=== PATIENT | male | born 1975 | race Caucasian/White ===

== ENCOUNTER 2016-12-23 01:35 | Inpatient (IN) | payer MEDICARE, MEDICAID ==
--- NOTE | 2016-12-23 01:40 | ED Physician Chart ---
Chief Complaint/HPI - Patient Information Date Seen:: 12/23/16 Time Seen:: 01:38 Chief Complaint:: vomiting History of Present Illness:: 41-year-old male, twitching disabled, noncommunicative, from long-term facility, brought in by EMS with acute, severe, vomiting since this morning. Also has associated dry heaving. There are apparently no alleviating or exacerbating factors. History limited as patient has underlying intellectual disability and cannot communicate History provided by EMS and EMS run sheet Allergies:: Allergies Allergy/AdvReac Type Severity Reaction Status Date / Time No Known Allergies Allergy Verified 06/21/16 22:17 Historian:: EMS Review:: Nurse's Note Reviewed, EMS run form Reviewed, Transfer documents Reviewed Review of Systems - Review of Systems Other: Complete system review otherwise unremarkable except as noted in history of present illness. Past Medical History - Past Medical History Past Medical History: Other (severe intellectual disability, Down syndrome) Family History: None Social History: Non Smoker, No Alcohol, No Drug Use, Care Facility Surgical History: None Psychiatricy History: None Medication: Reviewed Family Medical History - Family Member Mother History Unknown: Yes Physical Exam - Physical Examination Other:: INITIAL VITAL SIGNS: Reviewed by me GENERAL: Alert but severely intellectually handicapped and uncooperative. No acute distress HEAD: Head is normocephalic and atraumatic EYES: EOMI. PERRL. No scleral icterus. No conjunctival injection ENT: Moist mucous membranes. NECK: Supple. No masses. Full range of motion RESPIRATORY: No tachypnea. Clear breath sounds bilaterally. No wheezing, rales, or rhonchi CV: Regular rate and rhythm. No murmurs, rubs, or gallops ABDOMEN: Soft, non-distended, tender and guarding on deep palpation. No rebound. No masses. EXTREMITIES: No deformity. No cyanosis. No edema. SKIN: Warm and dry. No obvious rashes. NEUROLOGIC: Alert and oriented. Face is symmetric. Speech is normal. Moves all extremities equally. Motor and sensory distally intact. Labs/Radiology/EKG Results - Lab Results Results: Lab Results 12/23/16 12/23/16 12/23/16 Range/Units 01:49 01:49 01:49 WBC 10.8 D (4.8-10.8) Th/cmm RBC 4.58 (4.30-5.70) Mil/cmm Hgb 14.4 D (13.2-17.3) gm/dL Hct 42.7 D (39.0-49.0) % MCV 93.1 (80-99) fl MCH 31.3 H (26.0-30.0) pg MCHC Differential 33.7 (28.0-36.0) pg RDW 13.5 (11.5-20.0) % Plt Count 297 D (150-400) Th/cmm MPV 7.4 fl Band Neutrophils % 1 (0-10) % Neutrophils (Manual) 91 H (40-80) % Lymphocytes 8 L (20-50) % Platelet Estimate ADEQUATE (NORMAL) PT 10.5 (9.5-11.5) SECONDS INR 1.01 (0.5-1.4) PTT (Actin FS) 23.4 L (26.0-38.0) SECONDS Sodium 137 (136-145) mEq/L Potassium 3.4 L (3.5-5.1) mEq/L Chloride 100 (98-107) mEq/L Carbon Dioxide 29.1 (21.0-31.0) mEq/L Anion Gap 11.3 (7.0-16.0) BUN 13 (7-25) mg/dL Creatinine 0.6 L (0.7-1.3) mg/dL Est GFR ( Amer) > 60.0 (>90) ml/min Est GFR (Non-Af Amer) > 60.0 ml/min BUN/Creatinine Ratio 21.7 Glucose 159 H (70-105) mg/dL Whole Bld Lactic Acid (0.60-1.99) mmol/L Calcium 9.6 (8.6-10.3) mg/dL Total Bilirubin 0.3 (0.3-1.0) mg/dL AST 18 (13-39) U/L ALT 14 (7-52) U/L Alkaline Phosphatase 87 (34-104) U/L Total Protein 7.6 (6.0-8.3) gm/dL Albumin 3.8 L (4.2-5.5) gm/dL Globulin 3.8 gm/dL Albumin/Globulin Ratio 1.0 (1.0-1.8) Lipase (11-82) U/L 12/23/16 12/23/16 Range/Units 01:49 01:49 WBC (4.8-10.8) Th/cmm RBC (4.30-5.70) Mil/cmm Hgb (13.2-17.3) gm/dL Hct (39.0-49.0) % MCV (80-99) fl MCH (26.0-30.0) pg MCHC Differential (28.0-36.0) pg RDW (11.5-20.0) % Plt Count (150-400) Th/cmm MPV fl Band Neutrophils % (0-10) % Neutrophils (Manual) (40-80) % Lymphocytes (20-50) % Platelet Estimate (NORMAL) PT (9.5-11.5) SECONDS INR (0.5-1.4) PTT (Actin FS) (26.0-38.0) SECONDS Sodium (136-145) mEq/L Potassium (3.5-5.1) mEq/L Chloride (98-107) mEq/L Carbon Dioxide (21.0-31.0) mEq/L Anion Gap (7.0-16.0) BUN (7-25) mg/dL Creatinine (0.7-1.3) mg/dL Est GFR ( Amer) (>90) ml/min Est GFR (Non-Af Amer) ml/min BUN/Creatinine Ratio Glucose (70-105) mg/dL Whole Bld Lactic Acid 1.45 (0.60-1.99) mmol/L Calcium (8.6-10.3) mg/dL Total Bilirubin (0.3-1.0) mg/dL AST (13-39) U/L ALT (7-52) U/L Alkaline Phosphatase (34-104) U/L Total Protein (6.0-8.3) gm/dL Albumin (4.2-5.5) gm/dL Globulin gm/dL Albumin/Globulin Ratio (1.0-1.8) Lipase 10 L (11-82) U/L - Radiology Results Results: Single AP VIEW Portable Chest X-ray was interpreted independently and contemporaneously by Arsenio Macedo MD: No cardiomegaly Normal mediastinum No lung infiltrates No pneumothorax No soft tissue or bony abnormalities CT abdomen and pelvis without contrast preliminary report per radiology Consistent with early or partial small bowel obstruction - EKG Interpretations Comments:: 12-lead EKG Interpretation by Arsenio Macedo MD: Normal Sinus Rhythm with ventricular rate of [] beats per minute Normal axis Normal intervals No acute ST or T wave changes. No obvious STEMI ED Septic Shock - . Is Septic Shock (SBP<90, OR Lactate>4 mmol\L) present?: No Reassessment (Disposition) - Reassessment Reassessment:: Is a 41-year-old male with severe intellectual disability Down syndrome. He is brought in with intractable nausea and vomiting. Labs are not remarkable for anything to specific. Unable to provide any history at all he does not communicate at all. Very difficult to get a clear clinical picture of this patient. Given his severe intellectual disability he will need further workup and treatment. Discussed case with admitting physician. Patient admitted for further workup and treatment. Reassessment Condition:: Improved - Diagnosis Diagnosis:: Intractable nausea and vomiting due to early small bowel obstruction - Patient Disposition Discharge/Transfer:: Acute Care w/in this hosp Admitted to:: Med/Surg Admitting Medical Physician:: Sherine Bhatt Time:: 03:27 Condition at Disposition:: Stable
[2016-12-23] MEDS ORDERED: Sodium Chloride 0.9% 1,000 ML IV ONE (01:44)
[2016-12-23] MEDS ORDERED: Dexamethasone Sodium Phos 4 mg/mL Vial IVP STA (01:44)
[2016-12-23] MEDS ORDERED: Prochlorperazine 5 mg/mL 2mL Vial IVP STA (01:44)
[2016-12-23 02:07] LABS: MEAN CELL VOLUME 93.1 fl (80-99); MEAN CORPUSCULAR HEMOGLOBIN 31.3 pg (26.0-30.0); MEAN CORPUSCULAR HGB CONC 33.7 pg (28.0-36.0); MEAN PLATELET VOLUME 7.4 fl; RED BLOOD COUNT 4.58 Mil/cmm (4.30-5.70); RED CELL DISTRIBUTION WIDTH 13.5 % (11.5-20.0)
[2016-12-23 02:08] LABS: HEMATOCRIT 42.7 % (39.0-49.0); HEMOGLOBIN 14.4 gm/dL (13.2-17.3); PLATELET COUNT 297 Th/cmm (150-400); WHITE BLOOD COUNT 10.8 Th/cmm (4.8-10.8)
[2016-12-23 02:16] LABS: INR 1.01 (0.5-1.4); PROTHROMBIN TIME (TEST) 10.5 SECONDS (9.5-11.5)
[2016-12-23] MEDS ORDERED: Dexamethasone Sodium Phos 10 mg/mL PF Vial ONE (02:16)
[2016-12-23 02:18] LABS: ALKALINE PHOSPHATASE 87 U/L (34-104); ANION GAP 11.3 (7.0-16.0); BILIRUBIN,TOTAL 0.3 mg/dL (0.3-1.0); BUN - UREA NITROGEN 13 mg/dL (7-25); BUN/CREATININE RATIO 21.7; CALCIUM SERUM 9.6 mg/dL (8.6-10.3); CARBON DIOXIDE 29.1 mEq/L (21.0-31.0); CHLORIDE 100 mEq/L (98-107); CREATININE - SERUM 0.6 mg/dL (0.7-1.3); GLUCOSE 159 mg/dL (70-105); POTASSIUM SERUM 3.4 mEq/L (3.5-5.1); SGOT 18 U/L (13-39); SGPT/ALT 14 U/L (7-52); SODIUM SERUM 137 mEq/L (136-145)
[2016-12-23 02:32] LABS: BAND NEUTROPHILE 1 % (0-10); NEUTROPHILS 91 % (40-80); PLATELET ESTIMATE ADEQUATE (NORMAL); TOTAL CELLS COUNTED 100
[2016-12-23] MEDS ORDERED: Fleet Enema 135 mL RC PRN (08:44)
--- NOTE | 2016-12-23 09:07 | Diagnostic Imaging Report ---
INDICATION: Pain Technique: Serial axial images were performed through the abdomen and pelvis and then reformatted in the coronal plane. CTDI is 7.9mGy. [id number] FINDINGS: The study is marred by motion artifact. Question of some patchy infiltrate in the left lower lung zone. There is some right pleural effusion present. Liver and spleen are normal in size without focal mass. No renal masses stones or hydronephrosis. No masses or enlargement of the adrenal glands or pancreas. No biliary dilatation. Gallbladder without stones. Mild distention of small bowel loops. The appendix is not well seen. Within the pelvis bladder is smooth walled without stones. There is thickening of the hernández of the rectum. There is some distention of the rectal vault right fecal material Bone windows show no lytic or blastic lesions of bone. Dysplastic changes right hip joint. IMPRESSION: Question mild infiltrate left lung base. Rectal wall is thickened and contains fecal material. Question of proctitis. Slight distention of proximal small bowel loops raising question of partial or early small bowel obstruction.
--- NOTE | 2016-12-23 09:07 | Diagnostic Imaging Report ---
CLINICAL INDICATION: Shortness of breath FINDINGS: Heart size is normal. No infiltrates or effusions. No bony thoracic abnormalities. IMPRESSION: Normal chest x-ray.
--- NOTE | 2016-12-23 09:14 | General Progress Note ---
Subjective - Review of Systems Service Date: 12/23/16 Events since last encounter: ER note read CT scan - possible SBO PE: MR, can not give info, abdomen is flat and soft Plan: SBO series Objective - Results Result Diagrams: 12/23/16 01:49 12/23/16 01:49 Recent Labs: Laboratory Last Values WBC 10.8 Th/cmm (4.8-10.8) D 12/23/16 01:49 RBC 4.58 Mil/cmm (4.30-5.70) 12/23/16 01:49 Hgb 14.4 gm/dL (13.2-17.3) D 12/23/16 01:49 Hct 42.7 % (39.0-49.0) D 12/23/16 01:49 MCV 93.1 fl (80-99) 12/23/16 01:49 MCH 31.3 pg (26.0-30.0) H 12/23/16 01:49 MCHC Differential 33.7 pg (28.0-36.0) 12/23/16 01:49 RDW 13.5 % (11.5-20.0) 12/23/16 01:49 Plt Count 297 Th/cmm (150-400) D 12/23/16 01:49 MPV 7.4 fl 12/23/16 01:49 Band Neutrophils % 1 % (0-10) 12/23/16 01:49 Neutrophils (Manual) 91 % (40-80) H 12/23/16 01:49 Lymphocytes 8 % (20-50) L 12/23/16 01:49 Platelet Estimate ADEQUATE (NORMAL) 12/23/16 01:49 PT 10.5 SECONDS (9.5-11.5) 12/23/16 01:49 INR 1.01 (0.5-1.4) 12/23/16 01:49 PTT (Actin FS) 23.4 SECONDS (26.0-38.0) L 12/23/16 01:49 Sodium 137 mEq/L (136-145) 12/23/16 01:49 Potassium 3.4 mEq/L (3.5-5.1) L 12/23/16 01:49 Chloride 100 mEq/L (98-107) 12/23/16 01:49 Carbon Dioxide 29.1 mEq/L (21.0-31.0) 12/23/16 01:49 Anion Gap 11.3 (7.0-16.0) 12/23/16 01:49 BUN 13 mg/dL (7-25) 12/23/16 01:49 Creatinine 0.6 mg/dL (0.7-1.3) L 12/23/16 01:49 Est GFR ( Amer) > 60.0 ml/min (>90) 12/23/16 01:49 Est GFR (Non-Af Amer) > 60.0 ml/min 12/23/16 01:49 BUN/Creatinine Ratio 21.7 12/23/16 01:49 Glucose 159 mg/dL (70-105) H 12/23/16 01:49 Whole Bld Lactic Acid 1.45 mmol/L (0.60-1.99) 12/23/16 01:49 Calcium 9.6 mg/dL (8.6-10.3) 12/23/16 01:49 Total Bilirubin 0.3 mg/dL (0.3-1.0) 12/23/16 01:49 AST 18 U/L (13-39) 12/23/16 01:49 ALT 14 U/L (7-52) 12/23/16 01:49 Alkaline Phosphatase 87 U/L (34-104) 12/23/16 01:49 Total Protein 7.6 gm/dL (6.0-8.3) 12/23/16 01:49 Albumin 3.8 gm/dL (4.2-5.5) L 12/23/16 01:49 Globulin 3.8 gm/dL 12/23/16 01:49 Albumin/Globulin Ratio 1.0 (1.0-1.8) 12/23/16 01:49 Lipase 10 U/L (11-82) L 12/23/16 01:49 - Physical Exam Vitals and I&O: Vital Signs Temp 97.8 F 12/23/16 06:50 Pulse 70 12/23/16 08:24 Resp 18 12/23/16 08:24 BP 104/50 12/23/16 08:24 Pulse Ox 96 12/23/16 08:24 Active Medications: Current Medications Bisacodyl (Dulcolax 10 Mg Supp) 10 mg RC DAILY PRN PRN Reason: Constipation Stop: 02/21/17 08:45 Dextrose/Sodium Chloride (D5-0.45ns) 1,000 mls @ 75 mls/hr IV .[id number] DANIA Stop: 02/21/17 08:59 Potassium Chloride 40 meq/Lidocaine HCl 25 mg/ Sodium Chloride 272.5 mls @ 68 mls/hr IV X1 ONE Stop: 12/23/16 14:00 Sodium Phosphate (Fleet Enema) 135 ml RC DAILY PRN PRN Reason: Constipation Stop: 02/21/17 08:43
[2016-12-23] MEDS: D5-0.45NS 1,000 ML IV SCH ×2 (09:28→23:24)
[2016-12-23] MEDS ORDERED: Potassium Chloride 40 MEQ, Lidocaine 1% 20mL Vial 25 MG in Sodium Chloride 0.9% 250 ML IV ONE (10:00)
[2016-12-23] MEDS ORDERED: Diatrizoate Meglumine/Diatri 30 mL Sol ONE (10:15)
--- NOTE | 2016-12-23 11:03 | Diagnostic Imaging Report ---
INDICATION: Abdominal pain FINDINGS: The bowel gas pattern is unremarkable. No abnormal masses or calcifications. Dysplastic changes in the right hip joint. IMPRESSION: No acute disease.
--- NOTE | 2016-12-23 19:13 | History & Physical ---
ADMIT DATE: 12/23/2016 CHIEF COMPLAINT: The patient came in because of nausea and vomiting. HISTORY OF PRESENT ILLNESS: This is a 41-year-old male with past medical history of intellectual disability who came in because of persistent nausea and vomiting. A few hours prior to admission, the patient developed persistent nausea and vomiting. This was not associated with meals. Since his condition did not improve, he was brought to the Emergency Room. His white count was 10.8 with the temperature 98.4 degrees. Lipase was 10. CT scan of the abdomen/pelvis revealed thickened rectal wall containing fecal material, slight distention of proximal small bowel loops suggestive of early or partial small-bowel obstruction. This was followed by K[facility] which revealed no acute disease. The patient was seen by a surgeon. A small bowel series was done and this was negative for small-bowel obstruction. PAST MEDICAL HISTORY: 1. Intellectual disability. 2. Down syndrome. 3. Hearing loss. CURRENT MEDICATIONS: Currently on bisacodyl, Fleet enema. ALLERGIES: No known drug allergies. SOCIAL AND FAMILY HISTORY: I was unable to obtain directly from the patient because he remains nonverbal. REVIEW OF SYSTEMS: Again, I was not able to decipher from the patient. Based on transfer notes, the patient's appetite had deteriorated due to his persistent nausea and vomiting. He had no fever. HEENT: No mention of headaches or dizziness. CARDIORESPIRATORY: No chest pain, palpitations, diaphoresis, cough, no shortness of breath. GASTROINTESTINAL: He had persistent nausea and vomiting, but no abdominal pain. No melena, hematochezia, diarrhea. Workup revealed constipation. HEMATOLOGIC: No history of anemia. MUSCULOSKELETAL: Multiple joint arthralgias. GENITOURINARY: No history of kidney failure, no dysuria, no hematuria. NEUROPSYCHIATRIC: No syncopal episode nor seizure activity, no neuropathy. He has intellectual disability and Down syndrome. PHYSICAL EXAMINATION: GENERAL: The patient is awake, remains nonverbal, not in any distress. VITAL SIGNS: His blood pressure 105/72, pulse 75, temperature 97.9 degrees. SKIN: Good turgor, warm, no rash, no jaundice appreciated. HEENT: Head normocephalic, atraumatic. EYES: Extraocular muscles intact. Pupils equal, round, reactive to light and accommodation. Anicteric sclerae. ____ pink conjunctivae. Nose, midline nasal septum. Mouth, moist mucosa with adequate dentition. NECK: Supple, no adenopathy, no thyromegaly, no bruits, no JVD. CHEST AND CVS: S1, S2. No rub, murmur nor gallop appreciated. Point of maximal impulse fifth intercostal space, left midclavicular line. No abdominal or femoral bruits appreciated. LUNGS: Equal expansion. No use of accessory muscles. No supraclavicular retractions. Decreased breath sounds but clear to auscultation without any wheeze. ABDOMEN: Flat, soft. Positive for bowel sounds. No bruits, no tenderness on palpation. No guarding, no rebound. RECTAL: Lax sphincter tone. GENITOURINARY: Normal appearing male genitalia. MUSCULOSKELETAL: No effusions present in his joints, but unable to assess his range of motion. EXTREMITIES: No evidence of edema, cyanosis nor clubbing. He has adequate femoral, but unable to fully appreciate popliteal and dorsalis pedis pulses because bilateral lower extremities are contracted. NEUROLOGIC: The patient is awake. He has voluntary movements of his extremities. LABORATORY DATA: White count 10.8, hemoglobin 14.4, hematocrit 42.7, platelets 297, and polys 91%. Sodium 137, potassium 3.4, chloride 100, bicarbonate 29, BUN 13, creatinine 0.6, glucose 156, albumin 3.8, lipase 10, AST 18 and ALT 14. IMPRESSION: 1. Persistent nausea and vomiting, likely due to ongoing ileus with constipation. I doubt patient has any partial small-bowel obstruction. 2. Hypokalemia secondary to nausea and vomiting. 3. Intellectual disability. 4. Down syndrome. 5. Hearing loss. PLAN: 1. Keep the patient n.p.o. for now except for meds until cleared by Surgery. 2. Continue on with IV fluids. 3. Continue with enema as well as laxatives. [facility]# [id number]
[2016-12-24 06:21] LABS: ANION GAP 4.2 (7.0-16.0); BUN - UREA NITROGEN 10 mg/dL (7-25); BUN/CREATININE RATIO 16.7; CALCIUM SERUM 8.6 mg/dL (8.6-10.3); CARBON DIOXIDE 27.5 mEq/L (21.0-31.0); CHLORIDE 109 mEq/L (98-107); CREATININE - SERUM 0.6 mg/dL (0.7-1.3); GLUCOSE 121 mg/dL (70-105); POTASSIUM SERUM 3.7 mEq/L (3.5-5.1); SODIUM SERUM 137 mEq/L (136-145)
[2016-12-24 06:56] LABS: URINE BILIRUBIN NEGATIVE (NEGATIVE); URINE COLOR YELLOW; URINE GLUCOSE (UA) NEGATIVE (NEGATIVE); URINE KETONE 40 mg/dL (NEGATIVE)
[2016-12-24 06:57] LABS: URINE BLOOD MODERATE (NEGATIVE); URINE PH 8.5; URINE PROTEIN NEGATIVE (NEGATIVE)
[2016-12-24 07:01] LABS: URINE AMORPHOUS SEDIMENT MODERATE PHOSPHATES (NONE SEEN); URINE BACTERIA FEW /hpf (NONE SEEN); URINE EPITHELIAL CELLS RARE /lpf (FEW); URINE WBC 0-2 /hpf (0-5)
--- NOTE | 2016-12-24 08:04 | General Progress Note ---
Subjective - Review of Systems Service Date: 12/24/16 Events since last encounter: minimal NGT drainage - removed start clear liquids Objective - Results Result Diagrams: 12/23/16 01:49 12/24/16 05:35 Recent Labs: Laboratory Last Values WBC 10.8 Th/cmm (4.8-10.8) D 12/23/16 01:49 RBC 4.58 Mil/cmm (4.30-5.70) 12/23/16 01:49 Hgb 14.4 gm/dL (13.2-17.3) D 12/23/16 01:49 Hct 42.7 % (39.0-49.0) D 12/23/16 01:49 MCV 93.1 fl (80-99) 12/23/16 01:49 MCH 31.3 pg (26.0-30.0) H 12/23/16 01:49 MCHC Differential 33.7 pg (28.0-36.0) 12/23/16 01:49 RDW 13.5 % (11.5-20.0) 12/23/16 01:49 Plt Count 297 Th/cmm (150-400) D 12/23/16 01:49 MPV 7.4 fl 12/23/16 01:49 Band Neutrophils % 1 % (0-10) 12/23/16 01:49 Neutrophils (Manual) 91 % (40-80) H 12/23/16 01:49 Lymphocytes 8 % (20-50) L 12/23/16 01:49 Platelet Estimate ADEQUATE (NORMAL) 12/23/16 01:49 PT 10.5 SECONDS (9.5-11.5) 12/23/16 01:49 INR 1.01 (0.5-1.4) 12/23/16 01:49 PTT (Actin FS) 23.4 SECONDS (26.0-38.0) L 12/23/16 01:49 Sodium 137 mEq/L (136-145) 12/24/16 05:35 Potassium 3.7 mEq/L (3.5-5.1) 12/24/16 05:35 Chloride 109 mEq/L (98-107) H 12/24/16 05:35 Carbon Dioxide 27.5 mEq/L (21.0-31.0) 12/24/16 05:35 Anion Gap 4.2 (7.0-16.0) L 12/24/16 05:35 BUN 10 mg/dL (7-25) 12/24/16 05:35 Creatinine 0.6 mg/dL (0.7-1.3) L 12/24/16 05:35 Est GFR ( Amer) > 60.0 ml/min (>90) 12/24/16 05:35 Est GFR (Non-Af Amer) > 60.0 ml/min 12/24/16 05:35 BUN/Creatinine Ratio 16.7 12/24/16 05:35 Glucose 121 mg/dL (70-105) H 12/24/16 05:35 Whole Bld Lactic Acid 1.45 mmol/L (0.60-1.99) 12/23/16 01:49 Calcium 8.6 mg/dL (8.6-10.3) 12/24/16 05:35 Magnesium 2.0 mg/dL (1.9-2.7) 12/24/16 05:35 Total Bilirubin 0.3 mg/dL (0.3-1.0) 12/23/16 01:49 AST 18 U/L (13-39) 12/23/16 01:49 ALT 14 U/L (7-52) 12/23/16 01:49 Alkaline Phosphatase 87 U/L (34-104) 12/23/16 01:49 Total Protein 7.6 gm/dL (6.0-8.3) 12/23/16 01:49 Albumin 3.8 gm/dL (4.2-5.5) L 12/23/16 01:49 Globulin 3.8 gm/dL 12/23/16 01:49 Albumin/Globulin Ratio 1.0 (1.0-1.8) 12/23/16 01:49 Lipase 10 U/L (11-82) L 12/23/16 01:49 Urine Source CLEAN C 12/24/16 06:18 Urine Color YELLOW 12/24/16 06:18 Urine Clarity SLIGHT CLOUDY (CLEAR) 12/24/16 06:18 Urine pH 8.5 12/24/16 06:18 Ur Specific [place] 1.020 (1.005-1.030) 12/24/16 06:18 Urine Protein NEGATIVE mg/dL (NEGATIVE) 12/24/16 06:18 Urine Glucose (UA) NEGATIVE mg/dL (NEGATIVE) 12/24/16 06:18 Urine Ketones 40 mg/dL (NEGATIVE) H 12/24/16 06:18 Urine Blood MODERATE (NEGATIVE) H 12/24/16 06:18 Urine Nitrate NEGATIVE (NEGATIVE) 12/24/16 06:18 Urine Bilirubin NEGATIVE (NEGATIVE) 12/24/16 06:18 Urine Urobilinogen 1.0 E.U./dL (0.2 - 1.0) 12/24/16 06:18 Ur Leukocyte Esterase NEGATIVE (NEGATIVE) 12/24/16 06:18 Urine RBC 5-10 /hpf (0-5) H 12/24/16 06:18 Urine WBC 0-2 /hpf (0-5) 12/24/16 06:18 Ur Epithelial Cells RARE /lpf (FEW) 12/24/16 06:18 Amorphous Sediment MODERATE PHOSPHATES (NONE SEEN) 12/24/16 06:18 Urine Bacteria FEW /hpf (NONE SEEN) 12/24/16 06:18 - Physical Exam Vitals and I&O: Vital Signs Temp 98.8 F 12/24/16 04:00 Pulse 90 12/24/16 04:00 Resp 18 12/24/16 04:00 BP 137/60 12/24/16 04:00 Pulse Ox 94 12/24/16 04:00 Intake & Output 12/23/16 12/24/16 12/24/16 18:59 06:59 18:59 Intake Total 1000 Balance 1000 Intake: Intake, IV Amount 1000 D5-0.45NS 1,000 ml @ 75 1000 mls/hr IV .[id number] [facility], [facility]–1983 Rx #:[id number] Active Medications: Current Medications Bisacodyl (Dulcolax 10 Mg Supp) 10 mg RC DAILY PRN PRN Reason: Constipation Stop: 02/21/17 08:45 Dextrose/Sodium Chloride (D5-0.45ns) 1,000 mls @ 75 mls/hr IV .[id number] [facility] Stop: 02/21/17 08:59 Last Admin: 12/23/16 23:24 Dose: 75 mls/hr Sodium Phosphate (Fleet Enema) 135 ml RC DAILY PRN PRN Reason: Constipation Stop: 02/21/17 08:43
--- NOTE | 2016-12-24 09:24 | Diagnostic Imaging Report ---
Small bowel follow-through procedure History: Obstruction Comparison: KUB earlier the same day and CT abdomen and pelvis on 12/23/2016 Technique/procedure: Hospice Art Therapist view demonstrates generalized gas-filled loops of bowel. 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 Contrast was administered to patient's NG tube. Exam is limited based on the static images provided. There is opacification of the stomach. 1.5 hour films demonstrate opacification of multiple small bowel loops. Images were then obtained at 5 hours demonstrating contrast opacification of the large bowel. IMPRESSION: Limited examination based on the limited static images provided. When compared to previous examination, these findings favor an ileus. A partial distal small bowel obstructive process is considered less likely. Clinical correlation and follow-up is recommended. If needed repeat small bowel follow-through may be obtained for further assessment.
[2016-12-24] MEDS: D5-0.45NS 1,000 ML IV SCH (11:35)
--- NOTE | 2016-12-24 17:34 | General Progress Note ---
Subjective - Review of Systems Service Date: 12/24/16 Subjective: Non verbal Objective - Results Result Diagrams: 12/23/16 01:49 12/24/16 05:35 Recent Labs: Laboratory Last Values WBC 10.8 Th/cmm (4.8-10.8) D 12/23/16 01:49 RBC 4.58 Mil/cmm (4.30-5.70) 12/23/16 01:49 Hgb 14.4 gm/dL (13.2-17.3) D 12/23/16 01:49 Hct 42.7 % (39.0-49.0) D 12/23/16 01:49 MCV 93.1 fl (80-99) 12/23/16 01:49 MCH 31.3 pg (26.0-30.0) H 12/23/16 01:49 MCHC Differential 33.7 pg (28.0-36.0) 12/23/16 01:49 RDW 13.5 % (11.5-20.0) 12/23/16 01:49 Plt Count 297 Th/cmm (150-400) D 12/23/16 01:49 MPV 7.4 fl 12/23/16 01:49 Band Neutrophils % 1 % (0-10) 12/23/16 01:49 Neutrophils (Manual) 91 % (40-80) H 12/23/16 01:49 Lymphocytes 8 % (20-50) L 12/23/16 01:49 Platelet Estimate ADEQUATE (NORMAL) 12/23/16 01:49 PT 10.5 SECONDS (9.5-11.5) 12/23/16 01:49 INR 1.01 (0.5-1.4) 12/23/16 01:49 PTT (Actin FS) 23.4 SECONDS (26.0-38.0) L 12/23/16 01:49 Sodium 137 mEq/L (136-145) 12/24/16 05:35 Potassium 3.7 mEq/L (3.5-5.1) 12/24/16 05:35 Chloride 109 mEq/L (98-107) H 12/24/16 05:35 Carbon Dioxide 27.5 mEq/L (21.0-31.0) 12/24/16 05:35 Anion Gap 4.2 (7.0-16.0) L 12/24/16 05:35 BUN 10 mg/dL (7-25) 12/24/16 05:35 Creatinine 0.6 mg/dL (0.7-1.3) L 12/24/16 05:35 Est GFR ( Amer) > 60.0 ml/min (>90) 12/24/16 05:35 Est GFR (Non-Af Amer) > 60.0 ml/min 12/24/16 05:35 BUN/Creatinine Ratio 16.7 12/24/16 05:35 Glucose 121 mg/dL (70-105) H 12/24/16 05:35 Whole Bld Lactic Acid 1.45 mmol/L (0.60-1.99) 12/23/16 01:49 Calcium 8.6 mg/dL (8.6-10.3) 12/24/16 05:35 Magnesium 2.0 mg/dL (1.9-2.7) 12/24/16 05:35 Total Bilirubin 0.3 mg/dL (0.3-1.0) 12/23/16 01:49 AST 18 U/L (13-39) 12/23/16 01:49 ALT 14 U/L (7-52) 12/23/16 01:49 Alkaline Phosphatase 87 U/L (34-104) 12/23/16 01:49 Total Protein 7.6 gm/dL (6.0-8.3) 12/23/16 01:49 Albumin 3.8 gm/dL (4.2-5.5) L 12/23/16 01:49 Globulin 3.8 gm/dL 12/23/16 01:49 Albumin/Globulin Ratio 1.0 (1.0-1.8) 12/23/16 01:49 Lipase 10 U/L (11-82) L 12/23/16 01:49 Urine Source CLEAN C 12/24/16 06:18 Urine Color YELLOW 12/24/16 06:18 Urine Clarity SLIGHT CLOUDY (CLEAR) 12/24/16 06:18 Urine pH 8.5 12/24/16 06:18 Ur Specific [place] 1.020 (1.005-1.030) 12/24/16 06:18 Urine Protein NEGATIVE mg/dL (NEGATIVE) 12/24/16 06:18 Urine Glucose (UA) NEGATIVE mg/dL (NEGATIVE) 12/24/16 06:18 Urine Ketones 40 mg/dL (NEGATIVE) H 12/24/16 06:18 Urine Blood MODERATE (NEGATIVE) H 12/24/16 06:18 Urine Nitrate NEGATIVE (NEGATIVE) 12/24/16 06:18 Urine Bilirubin NEGATIVE (NEGATIVE) 12/24/16 06:18 Urine Urobilinogen 1.0 E.U./dL (0.2 - 1.0) 12/24/16 06:18 Ur Leukocyte Esterase NEGATIVE (NEGATIVE) 12/24/16 06:18 Urine RBC 5-10 /hpf (0-5) H 12/24/16 06:18 Urine WBC 0-2 /hpf (0-5) 12/24/16 06:18 Ur Epithelial Cells RARE /lpf (FEW) 12/24/16 06:18 Amorphous Sediment MODERATE PHOSPHATES (NONE SEEN) 12/24/16 06:18 Urine Bacteria FEW /hpf (NONE SEEN) 12/24/16 06:18 - Physical Exam Vitals and I&O: Vital Signs Temp 98.3 F 12/24/16 15:57 Pulse 80 12/24/16 15:57 Resp 18 12/24/16 15:57 BP 127/92 12/24/16 15:57 Pulse Ox 95 12/24/16 15:57 Intake & Output 12/23/16 12/24/16 12/24/16 18:59 06:59 18:59 Intake Total 1000 913.75 Balance 1000 913.75 Intake: Intake, IV Amount 1000 913.75 D5-0.45NS 1,000 ml @ 75 1000 913.75 mls/hr IV .[id number] [facility] Rx #:[id number] Active Medications: Current Medications Bisacodyl (Dulcolax 10 Mg Supp) 10 mg RC DAILY PRN PRN Reason: Constipation Stop: 02/21/17 08:45 Dextrose/Sodium Chloride (D5-0.45ns) 1,000 mls @ 75 mls/hr IV .[id number] [facility] Stop: 02/21/17 08:59 Last Admin: 12/24/16 11:35 Dose: 75 mls/hr Sodium Phosphate (Fleet Enema) 135 ml RC DAILY PRN PRN Reason: Constipation Stop: 02/21/17 08:43 General: Alert, Other (eyes open, not verbal, not following verbal commands) HEENT: Atraumatic Neck: Supple Cardiovascular: Regular rate Lungs: Clear to auscultation Abdomen: Bowel sounds, Other (Not distended) Extremities: Other (No edema) Neurological: Other (Non ambulatory) Skin: Other (Warm and dry) Psych/Mental Status: Other (Non Verbal, not following verbal commands.) Assessment/Plan - Assessment Assessment: Patient is awake, in no acute distress, BS present, NG tube DC, todat liquid diet started. Dx: Ileus, MR, Down syndrome - Plan Plan: On IV NS, clear liquid diet. Will continue to monitor.
--- NOTE | 2016-12-24 19:11 | Admit Criteria Form ---
Admit Criteria Forms - Admit Criteria Diagnosis: VOMITING Clinical Indications for Admission to Inpatient Care ( Place 'X' for any and all applicable criteria): Admission is indicated for 1 or more of the following(1)(2)(3): [X]I. Complete or partial gastrointestinal obstruction [ ]II. Vomiting due to significant metabolic derangement (eg, severe hypercalcemia, diabetic ketoacidosis) [ ]III. Other cause of vomiting requiring hospitalization (eg, poisoning, increased intracranial pressure) [ ]IV. Inpatient admission required rather than observation care because of 1 or more of the following [ ]i) Hemodynamic instability [ ]ii) Vomiting that is severe or persistent indicated by 1 or more of the following 1) Numerous episodes of vomiting in past 24hours (eg, every 1 to 2 hours) 2) Suggests severe underlying cause or complication (eg , projectile, feculent, bilious, coffee ground, bloody) 3) Appropriate antiemetic treatment (eg, repeated oral or parenteral dosing) does not sufficiently reduce vomiting within 12 to 24 hours of treatment 4) Treatment regimen necessary to adequately control vomiting requires inpatient level of care (eg, not immediately available in outpatient setting) [ ]iii) Severe electrolyte abnormalities requiring inpatient care [ ]iv) Severe pain requiring acute inpatient management( Continuous or frequent (eg, every 2 to 4 hours) parental analgesics or analgesic regimen that can only be performed or initiated in inpatient setting) [ ]v) High fever or infection requiring inpatient admission as indicated by 1 or more of the following(7)(8): [ ]1) Appropriate outpatient or observation care antimicrobial treatment unavailable, not effective, or not feasible [ ]2) Documented bacteremia [ ]3) Temp >104.9 degrees F (40.5 degrees C) (oral) [ ]4) Temp >103.1 degrees F (39.5 C) (oral) or <96.8 degrees F (36 C) (rectal) that does not respond to all emergency treatment measures [ ]vi) Acute renal failure [ ]vii) IV fluid required rather than oral rehydration to replace significant on going losses (greater than 3 L/m2 per day) [ ]viii) Parenteral nutrition regimen that must be implemented on inpatient basis [ ]ix) Other condition, treatment or monitoring requiring inpatient admission Extended stay beyond goal length of stay may be needed for(1)(4): [ ]a) Severe vomiting [ ]b) Persistent vomiting, vital sign changes, severe electrolyte imbalance , or diagnosed cause of vomiting that requires continued hospitalization (eg, gastrointestinal obstruction , increased intracranial pressure) [ ]c) Surgery to treat identified causes of vomiting (eg, bowel obstruction , intracranial process) [ ]d) Comorbid illness that requires inpatient care (eg, acute heart failure , renal failure) [ ]e) Need for inpatient endoscopy The original [employer] content created by [employer] has been revised. The portions of the content which have been revised are identified through the use of italic text or in bold, and [facility] has neither reviewed nor approved the modified material. All other unmodified content is copyright [facility]. Please see references footnoted in the original [facility] edition 2016 Admit Criteria Met?: Yes
[2016-12-25 05:58] LABS: % EOSINOPHILS 0.2 % (0.0-5.0); % LYMPHOCYTES 13.6 % (20.0-50.0); % MONOCYTES 6.9 % (2.0-10.0); % NEUTROPHILS 79.3 % (40.0-80.0); HEMOGLOBIN 13.3 gm/dL (13.2-17.3); MEAN CELL VOLUME 92.7 fl (80-99); MEAN CORPUSCULAR HEMOGLOBIN 31.6 pg (26.0-30.0); MEAN PLATELET VOLUME 7.1 fl; NEUTROPHILE ABSOLUTE 8.6 Th/cmm (1.8-8.0); PLATELET COUNT 263 Th/cmm (150-400); RED CELL DISTRIBUTION WIDTH 13.1 % (11.5-20.0); WHITE BLOOD COUNT 10.9 Th/cmm (4.8-10.8)
[2016-12-25 06:09] LABS: ALKALINE PHOSPHATASE 60 U/L (34-104); ANION GAP 9.1 (7.0-16.0); BILIRUBIN,TOTAL 0.4 mg/dL (0.3-1.0); BUN - UREA NITROGEN 6 mg/dL (7-25); CALCIUM SERUM 8.2 mg/dL (8.6-10.3); CARBON DIOXIDE 25.1 mEq/L (21.0-31.0); CHLORIDE 104 mEq/L (98-107); CREATININE - SERUM 0.5 mg/dL (0.7-1.3); GLUCOSE 127 mg/dL (70-105); POTASSIUM SERUM 3.2 mEq/L (3.5-5.1); SGOT 21 U/L (13-39); SGPT/ALT 14 U/L (7-52); SODIUM SERUM 135 mEq/L (136-145)
--- NOTE | 2016-12-25 08:45 | General Progress Note ---
Subjective - Review of Systems Service Date: 12/24/16 Events since last encounter: eating better advance diet Objective - Results Result Diagrams: 12/25/16 05:36 12/25/16 05:36 Recent Labs: Laboratory Last Values WBC 10.9 Th/cmm (4.8-10.8) H 12/25/16 05:36 RBC 4.20 Mil/cmm (4.30-5.70) L 12/25/16 05:36 Hgb 13.3 gm/dL (13.2-17.3) 12/25/16 05:36 Hct 39.0 % (39.0-49.0) 12/25/16 05:36 MCV 92.7 fl (80-99) 12/25/16 05:36 MCH 31.6 pg (26.0-30.0) H 12/25/16 05:36 MCHC Differential 34.0 pg (28.0-36.0) 12/25/16 05:36 RDW 13.1 % (11.5-20.0) 12/25/16 05:36 Plt Count 263 Th/cmm (150-400) 12/25/16 05:36 MPV 7.1 fl 12/25/16 05:36 Neutrophils % 79.3 % (40.0-80.0) 12/25/16 05:36 Band Neutrophils % 1 % (0-10) 12/23/16 01:49 Lymphocytes % 13.6 % (20.0-50.0) L 12/25/16 05:36 Monocytes % 6.9 % (2.0-10.0) 12/25/16 05:36 Eosinophils % 0.2 % (0.0-5.0) 12/25/16 05:36 Basophils % 0.0 % (0.0-2.0) 12/25/16 05:36 Neutrophils (Manual) 91 % (40-80) H 12/23/16 01:49 Lymphocytes 8 % (20-50) L 12/23/16 01:49 Platelet Estimate ADEQUATE (NORMAL) 12/23/16 01:49 PT 10.5 SECONDS (9.5-11.5) 12/23/16 01:49 INR 1.01 (0.5-1.4) 12/23/16 01:49 PTT (Actin FS) 23.4 SECONDS (26.0-38.0) L 12/23/16 01:49 Sodium 135 mEq/L (136-145) L 12/25/16 05:36 Potassium 3.2 mEq/L (3.5-5.1) L 12/25/16 05:36 Chloride 104 mEq/L (98-107) 12/25/16 05:36 Carbon Dioxide 25.1 mEq/L (21.0-31.0) 12/25/16 05:36 Anion Gap 9.1 (7.0-16.0) 12/25/16 05:36 BUN 6 mg/dL (7-25) L 12/25/16 05:36 Creatinine 0.5 mg/dL (0.7-1.3) L 12/25/16 05:36 Est GFR ( Amer) > 60.0 ml/min (>90) 12/25/16 05:36 Est GFR (Non-Af Amer) > 60.0 ml/min 12/25/16 05:36 BUN/Creatinine Ratio 12.0 12/25/16 05:36 Glucose 127 mg/dL (70-105) H 12/25/16 05:36 Whole Bld Lactic Acid 1.45 mmol/L (0.60-1.99) 12/23/16 01:49 Calcium 8.2 mg/dL (8.6-10.3) L 12/25/16 05:36 Magnesium 2.0 mg/dL (1.9-2.7) 12/24/16 05:35 Total Bilirubin 0.4 mg/dL (0.3-1.0) 12/25/16 05:36 AST 21 U/L (13-39) 12/25/16 05:36 ALT 14 U/L (7-52) 12/25/16 05:36 Alkaline Phosphatase 60 U/L (34-104) 12/25/16 05:36 Total Protein 6.3 gm/dL (6.0-8.3) 12/25/16 05:36 Albumin 3.2 gm/dL (4.2-5.5) L 12/25/16 05:36 Globulin 3.1 gm/dL 12/25/16 05:36 Albumin/Globulin Ratio 1.0 (1.0-1.8) 12/25/16 05:36 Lipase 10 U/L (11-82) L 12/23/16 01:49 Urine Source CLEAN C 12/24/16 06:18 Urine Color YELLOW 12/24/16 06:18 Urine Clarity SLIGHT CLOUDY (CLEAR) 12/24/16 06:18 Urine pH 8.5 12/24/16 06:18 Ur Specific [place] 1.020 (1.005-1.030) 12/24/16 06:18 Urine Protein NEGATIVE mg/dL (NEGATIVE) 12/24/16 06:18 Urine Glucose (UA) NEGATIVE mg/dL (NEGATIVE) 12/24/16 06:18 Urine Ketones 40 mg/dL (NEGATIVE) H 12/24/16 06:18 Urine Blood MODERATE (NEGATIVE) H 12/24/16 06:18 Urine Nitrate NEGATIVE (NEGATIVE) 12/24/16 06:18 Urine Bilirubin NEGATIVE (NEGATIVE) 12/24/16 06:18 Urine Urobilinogen 1.0 E.U./dL (0.2 - 1.0) 12/24/16 06:18 Ur Leukocyte Esterase NEGATIVE (NEGATIVE) 12/24/16 06:18 Urine RBC 5-10 /hpf (0-5) H 12/24/16 06:18 Urine WBC 0-2 /hpf (0-5) 12/24/16 06:18 Ur Epithelial Cells RARE /lpf (FEW) 12/24/16 06:18 Amorphous Sediment MODERATE PHOSPHATES (NONE SEEN) 12/24/16 06:18 Urine Bacteria FEW /hpf (NONE SEEN) 12/24/16 06:18 - Physical Exam Vitals and I&O: Vital Signs Temp 98.2 F 12/25/16 07:34 Pulse 65 12/25/16 07:34 Resp 17 12/25/16 07:34 BP 96/64 12/25/16 07:34 Pulse Ox 93 12/25/16 07:34 Intake & Output 12/24/16 12/25/16 12/25/16 18:59 06:59 18:59 Intake Total 913.75 Balance 913.75 Intake: Intake, IV Amount 913.75 D5-0.45NS 1,000 ml @ 75 913.75 mls/hr IV .[id number] [facility] Rx #:[id number] Other: # Voids 3 # Bowel Movements 1 Active Medications: Current Medications Bisacodyl (Dulcolax 10 Mg Supp) 10 mg RC DAILY PRN PRN Reason: Constipation Stop: 02/21/17 08:45 Dextrose/Sodium Chloride (D5-0.45ns) 1,000 mls @ 75 mls/hr IV .[id number] [facility] Stop: 02/21/17 08:59 Last Admin: 12/24/16 11:35 Dose: 75 mls/hr Mupirocin (Bactroban Oint) 1 appl TP BID [facility] Stop: 02/23/17 08:59 Sodium Phosphate (Fleet Enema) 135 ml RC DAILY PRN PRN Reason: Constipation Stop: 02/21/17 08:43
--- NOTE | 2016-12-25 08:53 | General Progress Note ---
Subjective - Review of Systems Service Date: 12/25/16 Subjective: Non verbal Objective - Results Result Diagrams: 12/25/16 05:36 12/25/16 05:36 Recent Labs: Laboratory Last Values WBC 10.9 Th/cmm (4.8-10.8) H 12/25/16 05:36 RBC 4.20 Mil/cmm (4.30-5.70) L 12/25/16 05:36 Hgb 13.3 gm/dL (13.2-17.3) 12/25/16 05:36 Hct 39.0 % (39.0-49.0) 12/25/16 05:36 MCV 92.7 fl (80-99) 12/25/16 05:36 MCH 31.6 pg (26.0-30.0) H 12/25/16 05:36 MCHC Differential 34.0 pg (28.0-36.0) 12/25/16 05:36 RDW 13.1 % (11.5-20.0) 12/25/16 05:36 Plt Count 263 Th/cmm (150-400) 12/25/16 05:36 MPV 7.1 fl 12/25/16 05:36 Neutrophils % 79.3 % (40.0-80.0) 12/25/16 05:36 Band Neutrophils % 1 % (0-10) 12/23/16 01:49 Lymphocytes % 13.6 % (20.0-50.0) L 12/25/16 05:36 Monocytes % 6.9 % (2.0-10.0) 12/25/16 05:36 Eosinophils % 0.2 % (0.0-5.0) 12/25/16 05:36 Basophils % 0.0 % (0.0-2.0) 12/25/16 05:36 Neutrophils (Manual) 91 % (40-80) H 12/23/16 01:49 Lymphocytes 8 % (20-50) L 12/23/16 01:49 Platelet Estimate ADEQUATE (NORMAL) 12/23/16 01:49 PT 10.5 SECONDS (9.5-11.5) 12/23/16 01:49 INR 1.01 (0.5-1.4) 12/23/16 01:49 PTT (Actin FS) 23.4 SECONDS (26.0-38.0) L 12/23/16 01:49 Sodium 135 mEq/L (136-145) L 12/25/16 05:36 Potassium 3.2 mEq/L (3.5-5.1) L 12/25/16 05:36 Chloride 104 mEq/L (98-107) 12/25/16 05:36 Carbon Dioxide 25.1 mEq/L (21.0-31.0) 12/25/16 05:36 Anion Gap 9.1 (7.0-16.0) 12/25/16 05:36 BUN 6 mg/dL (7-25) L 12/25/16 05:36 Creatinine 0.5 mg/dL (0.7-1.3) L 12/25/16 05:36 Est GFR ( Amer) > 60.0 ml/min (>90) 12/25/16 05:36 Est GFR (Non-Af Amer) > 60.0 ml/min 12/25/16 05:36 BUN/Creatinine Ratio 12.0 12/25/16 05:36 Glucose 127 mg/dL (70-105) H 12/25/16 05:36 Whole Bld Lactic Acid 1.45 mmol/L (0.60-1.99) 12/23/16 01:49 Calcium 8.2 mg/dL (8.6-10.3) L 12/25/16 05:36 Magnesium 2.0 mg/dL (1.9-2.7) 12/24/16 05:35 Total Bilirubin 0.4 mg/dL (0.3-1.0) 12/25/16 05:36 AST 21 U/L (13-39) 12/25/16 05:36 ALT 14 U/L (7-52) 12/25/16 05:36 Alkaline Phosphatase 60 U/L (34-104) 12/25/16 05:36 Total Protein 6.3 gm/dL (6.0-8.3) 12/25/16 05:36 Albumin 3.2 gm/dL (4.2-5.5) L 12/25/16 05:36 Globulin 3.1 gm/dL 12/25/16 05:36 Albumin/Globulin Ratio 1.0 (1.0-1.8) 12/25/16 05:36 Lipase 10 U/L (11-82) L 12/23/16 01:49 Urine Source CLEAN C 12/24/16 06:18 Urine Color YELLOW 12/24/16 06:18 Urine Clarity SLIGHT CLOUDY (CLEAR) 12/24/16 06:18 Urine pH 8.5 12/24/16 06:18 Ur Specific [place] 1.020 (1.005-1.030) 12/24/16 06:18 Urine Protein NEGATIVE mg/dL (NEGATIVE) 12/24/16 06:18 Urine Glucose (UA) NEGATIVE mg/dL (NEGATIVE) 12/24/16 06:18 Urine Ketones 40 mg/dL (NEGATIVE) H 12/24/16 06:18 Urine Blood MODERATE (NEGATIVE) H 12/24/16 06:18 Urine Nitrate NEGATIVE (NEGATIVE) 12/24/16 06:18 Urine Bilirubin NEGATIVE (NEGATIVE) 12/24/16 06:18 Urine Urobilinogen 1.0 E.U./dL (0.2 - 1.0) 12/24/16 06:18 Ur Leukocyte Esterase NEGATIVE (NEGATIVE) 12/24/16 06:18 Urine RBC 5-10 /hpf (0-5) H 12/24/16 06:18 Urine WBC 0-2 /hpf (0-5) 12/24/16 06:18 Ur Epithelial Cells RARE /lpf (FEW) 12/24/16 06:18 Amorphous Sediment MODERATE PHOSPHATES (NONE SEEN) 12/24/16 06:18 Urine Bacteria FEW /hpf (NONE SEEN) 12/24/16 06:18 - Physical Exam Vitals and I&O: Vital Signs Temp 98.2 F 12/25/16 07:34 Pulse 65 12/25/16 07:34 Resp 17 12/25/16 07:34 BP 96/64 12/25/16 07:34 Pulse Ox 93 12/25/16 07:34 Intake & Output 12/24/16 12/25/16 12/25/16 18:59 06:59 18:59 Intake Total 913.75 Balance 913.75 Intake: Intake, IV Amount 913.75 D5-0.45NS 1,000 ml @ 75 913.75 mls/hr IV .[id number] [facility] Rx #:[id number] Other: # Voids 3 # Bowel Movements 1 Active Medications: Current Medications Bisacodyl (Dulcolax 10 Mg Supp) 10 mg RC DAILY PRN PRN Reason: Constipation Stop: 02/21/17 08:45 Dextrose/Sodium Chloride (D5-0.45ns) 1,000 mls @ 75 mls/hr IV .[id number] [facility] Stop: 02/21/17 08:59 Last Admin: 12/24/16 11:35 Dose: 75 mls/hr Mupirocin (Bactroban Oint) 1 appl TP BID [facility] Stop: 02/23/17 08:59 Sodium Phosphate (Fleet Enema) 135 ml RC DAILY PRN PRN Reason: Constipation Stop: 02/21/17 08:43 General: Alert, Other (Awake, eyes open, non verbal) HEENT: Atraumatic Neck: Supple Cardiovascular: Regular rate Lungs: Clear to auscultation Abdomen: Bowel sounds, Soft Extremities: Other (No edema) Neurological: Other (Non ambulatory) Skin: Other (Warm and dry) Psych/Mental Status: Other (MR, confused) Assessment/Plan - Assessment Assessment: Patient is awake, in no acute distress, BS present, NG tube DC, todat liquid diet started. Dx: Ileus, MR, Down syndrome. - Plan Plan: On IV NS, clear liquid diet. Will continue to monitor.
--- NOTE | 2016-12-25 10:23 | Consultation ---
DATE OF CONSULTATION: 12/25/2016 REFERRING PHYSICIAN: Dr. Bhatt. REASON FOR CONSULTATION: Possible bowel obstruction. Thank you for referring this patient to me. HISTORY OF PRESENT ILLNESS: This is a 41-year-old male with Down syndrome and is totally noncommunicative. He has severe contractures. Today, he apparently had multiple episodes of vomiting and was admitted. CAT scan showed possible small bowel obstruction. LABORATORY STUDIES: WBC was normal, neutrophils high at 91%. Chemistry: BUN and creatinine normal. Blood sugar slightly high at 159. Liver function tests are normal. PHYSICAL EXAMINATION: GENERAL: The patient is noncommunicative. He has contractures. ABDOMEN: However, is flat and soft. On pressure, there appears to be minimal tenderness. Peristalsis normal. IMPRESSION: Possible small bowel obstruction. PLAN: We will order small bowel series to rule out obstruction on this patient who otherwise is unable to give any information. Thank you for this consultation. We will follow with you. [facility]# [id number]
[2016-12-26] MEDS: D5-0.45NS 1,000 ML IV SCH (03:32)
--- NOTE | 2016-12-26 13:59 | Consultation ---
DATE OF CONSULTATION: 12/25/2016 REASON FOR CONSULTATION: Abdominal pain, nausea, vomiting, decreased oral intake. HISTORY OF PRESENT ILLNESS: This consult was obtained through the courtesy of Dr. Bhatt and Dr. Chauahn for this 41-year-old with Down syndrome, mental retardation, hearing loss, admitted to the hospital for nausea, vomiting and abdominal pain. Apparently, the patient has been having nausea, vomiting, was put on liquid diet and then his oral intake has decreased and he began complaining of abdominal pain. The patient was transferred here. While in the hospital, he had an x-ray, which showed fecal impaction and ileus. The patient started to improve. There was consideration for a feeding tube, but then the patient was given solid food and his appetite has improved and he started eating, so apparently it was a vicious tangirnaq with nausea and vomiting, leading to liquid diet and leading to decreased appetite . At this time, the patient is in no acute distress and eating okay. PAST MEDICAL HISTORY: Mental retardation, Down syndrome, hearing loss. PAST SURGICAL HISTORY: Negative. SOCIAL HISTORY: Nonsmoker, nonalcoholic, IV drug abuser. FAMILY HISTORY: Unobtainable and noncontributory. ALLERGIES: No known drug allergies. MEDICATIONS: Prior to admission include bisacodyl and enemas. While he was in the hospital, he is on bisacodyl, Bactroban and enemas. REVIEW OF SYSTEMS: As per history of present illness. PHYSICAL EXAMINATION: GENERAL: The patient is awake, in no acute distress, nonverbal. VITAL SIGNS: Blood pressure 110/60, heart rate 78, respiratory rate 17, temperature is 97.4. HEAD AND NECK: Pupils reactive to light. Extraocular muscles could not be tested. Oral cavity, no lesion. NECK: Supple, no jugular venous distention, no carotid bruit or lymph node. CHEST: Good respiratory movements. LUNGS: Clear to auscultation. CARDIOVASCULAR: Regular rate and rhythm. No murmur or gallop. ABDOMEN: Soft, positive bowel sounds. EXTREMITIES: Lower extremities, no edema. CENTRAL NERVOUS SYSTEM: Unable to evaluate, but the patient is moving 4 extremities. LABORATORY DATA: White count 10.9, H and H of 13.3 and 39, platelets is 263. PT is normal. Chemistry showed normal liver enzymes. X-ray showed ileus and some stool in the rectum with thickened wall, but most likely from constipation. IMPRESSION: A 41-year-old with multiple medical problems with decreased oral intake, nausea, vomiting, abdominal pain, ileus. ASSESSMENT AND PLAN: 1. Decreased oral intake, most likely related to the quality and quantity of foods, so now the patient is on solid food so to continue feeding. 2. Nausea, vomiting as above. So, the patient is not vomiting and he wants to continue solid food. 3. Ileus, most probably due to constipation, so bowel prep as needed. 4. Abdominal pain. As a result, to continue current management, follow up as an outpatient as needed. Thank you Dr. Chauhan and Dr. Bhatt for allowing me to participate in the care of this patient. If you have any further questions, please let me know. JOB# [id number] MTDD
--- NOTE | 2016-12-26 21:29 | Discharge Summary ---
DATE OF DISCHARGE: 12/26/2016 ADMITTING DIAGNOSES: 1. Rule out small bowel obstruction. 2. Ileus. 3. Persistent nausea and vomiting. 4. Hypokalemia. SECONDARY DIAGNOSES: 1. Include intellectual disability secondary to mental retardation. 2. History of Down syndrome. 3. Dyslipidemia. DISCHARGE DIAGNOSES: 1. Rule out small bowel obstruction, resolved. 2. Ileus has resolved. 3. Persistent nausea and vomiting. 4. Hypokalemia. CONSULTANTS: Included Dr. Madrigal, surgery. MAJOR PROCEDURES: There is a CT of the abdomen and pelvis showing question mild infiltrate, left lung base. Rectal wall is thickened and contains fecal material, questionable proctitis, slight distention of the proximal small bowel loops raising question of partial early small bowel obstruction. There was a KUB done on 12/23/2016, showing no acute disease. DISCHARGE MEDICATIONS: Dulcolax 10 mg per rectum daily p.r.n. for constipation, Fleet enema 135 mL per rectum for severe constipation, Bactroban b.i.d., Tylenol 650 q. 4 hours p.r.n. for pain, aspirin 81 mg daily, atorvastatin 10 mg at bedtime, calcium with vitamin one tab b.i.d., Imdur 30 b.i.d., magnesium hydroxide 30 mL q. 72 hours p.r.n. for GI upset, multivitamins and minerals daily, nitroglycerin p.r.n. BRIEF HOSPITAL COURSE: This 41-year-old gentleman with the above-mentioned diagnosis presented to the ER with persistent nausea and vomiting for about a day. On admission, white count was 10.8 and his temperature was 98.4. The other pertinent negatives included lipase of 10. He underwent a CT of the abdomen showing the above-mentioned findings. He was placed on IV fluids, empiric IV antibiotics and was made n.p.o. initially, but his diet was resumed with clear liquid diet and advanced as tolerated. His vital signs did remain stable throughout his hospital stay and his labs were also noted to be fairly stable except for occasional hypokalemia. On 12/25/2016, he was fed a regular diet, but had nausea, vomiting and then a soft mechanical diet was resumed, which the patient has been able to tolerate. CONDITION ON DISCHARGE: Stable. DISPOSITION: The patient was transferred back to his board and care under the care of Dr. Garcia. JOB# [id number] SON
== END 2016-12-26 18:45 | DRG 388 ==
LOC: ER 01:35 → MSI 08:40
PROVIDERS: ADMIT Internal Medicine; ATTEND Internal Medicine
DX: K56.41 Fecal impaction (principal); G82.50 Quadriplegia, unspecified; K56.7 Ileus, unspecified; F72 Severe intellectual disabilities; E87.6 Hypokalemia; Q90.9 Down syndrome, unspecified; H91.90 Unspecified hearing loss, unspecified ear
CPT/HCPCS: 36415-UA; 71010-TC; 74000-TC; 74250-TC; 80048-TC; 80053-TC; 81001-TC; 83605; 83690-TC; 83735-TC; 85007-TC; 85025-TC; 85027-TC; 85610-TC; 85730-TC; 93005; 96374; 96375; J1885; J2001; J2060; J2405; J3480; J7030; Q0162; Z7610

== ENCOUNTER 2016-12-27 17:59 | Inpatient (IN) | payer MEDICARE, MEDICAID ==
--- NOTE | 2016-12-27 19:49 | ED Physician Chart ---
Chief Complaint/HPI - Patient Information Date Seen:: 12/27/16 Time Seen:: 19:40 Chief Complaint:: vomiting History of Present Illness:: Patient was an inpatient in this hospital and was discharged yesterday. He had apparently been admitted for vomiting. Patient started vomiting again today. Allergies:: Allergies Allergy/AdvReac Type Severity Reaction Status Date / Time No Known Allergies Allergy Verified 06/21/16 22:17 Historian:: EMS Review:: Patient unable to respond Review of Systems - Review of Systems General/Constitutional: No fever, No chills Skin: No skin lesions Head: No headache Eyes: No loss of vision ENT: No earache Neck: No neck pain, No swelling Cardio Vascular: No chest pain, No palpitations Pulmonary: No SOB GI: Vomiting G/U: No hematuria, No nacturia Musculoskeletal: No bone or joint pain, No muscle pain Endocrine: No polydipsia Hematopoietic: No bruising Allergic/Immuno: No urticaria Neurological: Syncope Past Medical History - Past Medical History Past Medical History: Other (Down's syndrome) Family History: Other (unavailable) Social History: Care Facility Surgical History: other (unavailable) Psychiatricy History: Other (medical returned a) Medication: Reviewed Family Medical History - Family Member Mother History Unknown: Yes Physical Exam - Physical Examination Other Gen/Cons comments:: Mildly chronically ill appearing; in no acute distress Head: Atraumatic Eyes: Lids, conjuctiva normal, PERRL Skin: Nl inspection ENMT: External ears, nose nl Neck: No nuchal rigidity Respiratory: Nl effort/Exclusion Cardio Vascular: RRR, No murmur, gallop, rubs GI: No tenderness/rebounding/guarding, No organomegaly : No CVA tenderness Extremities: Normal digits & nails Neuro/Psych: No focal deficits Misc: Normal back Labs/Radiology/EKG Results - Lab Results Comments:: Laboratory Results - last 24 hr 12/27/16 12/27/16 20:00 20:00 WBC 11.9 H RBC 4.46 Hgb 13.8 Hct 40.7 MCV 91.4 MCH 31.0 H MCHC Differential 34.0 RDW 13.1 Plt Count 313 MPV 7.2 Neutrophils % 81.7 H Lymphocytes % 12.1 L Monocytes % 5.7 Eosinophils % 0.3 Basophils % 0.2 Sodium 134 L Potassium 3.2 L Chloride 100 Carbon Dioxide 26.4 Anion Gap 10.8 BUN 12 Creatinine 0.4 L Est GFR ( Amer) > 60.0 Est GFR (Non-Af Amer) > 60.0 BUN/Creatinine Ratio 30.0 Glucose 118 H Calcium 8.7 Lipase 3 L ED Septic Shock - . Is Septic Shock (SBP<90, OR Lactate>4 mmol\L) present?: No Reassessment (Disposition) - Reassessment Reassessment:: No vomiting while in the emergency department Reassessment Condition:: Improved - Diagnosis Diagnosis:: Intractable vomiting; Down syndrome - Patient Disposition Admitted to:: Med/Surg Spoke to:: Sherine Bhatt Admitting Medical Physician:: Sherine Bhatt Condition at Disposition:: Stable, Improved
[2016-12-27 20:14] LABS: % BASOPHILS 0.2 % (0.0-2.0); % EOSINOPHILS 0.3 % (0.0-5.0); % LYMPHOCYTES 12.1 % (20.0-50.0); % MONOCYTES 5.7 % (2.0-10.0); % NEUTROPHILS 81.7 % (40.0-80.0); HEMATOCRIT 40.7 % (39.0-49.0); HEMOGLOBIN 13.8 gm/dL (13.2-17.3); MEAN CELL VOLUME 91.4 fl (80-99); MEAN PLATELET VOLUME 7.2 fl; NEUTROPHILE ABSOLUTE 9.8 Th/cmm (1.8-8.0); PLATELET COUNT 313 Th/cmm (150-400); RED BLOOD COUNT 4.46 Mil/cmm (4.30-5.70); RED CELL DISTRIBUTION WIDTH 13.1 % (11.5-20.0); WHITE BLOOD COUNT 11.9 Th/cmm (4.8-10.8)
[2016-12-27 20:27] LABS: ANION GAP 10.8 (7.0-16.0); BUN - UREA NITROGEN 12 mg/dL (7-25); CALCIUM SERUM 8.7 mg/dL (8.6-10.3); CARBON DIOXIDE 26.4 mEq/L (21.0-31.0); CHLORIDE 100 mEq/L (98-107); CREATININE - SERUM 0.4 mg/dL (0.7-1.3); GLUCOSE 118 mg/dL (70-105); LIPASE 3 U/L (11-82); POTASSIUM SERUM 3.2 mEq/L (3.5-5.1); SODIUM SERUM 134 mEq/L (136-145)
[2016-12-28] MEDS: D5-0.45NS 1,000 ML IV SCH (02:57)
[2016-12-28] MEDS: Ciprofloxacin 200mg Premix PB 200 MG/100 ML BAG IV SCH ×2 (03:08→15:14)
[2016-12-28] MEDS: KCL 20mEq/100mL Premix 20 MEQ/100 ML PIGGYBACK IV SCH ×2 (04:28→06:48)
[2016-12-28 07:01] LABS: % BASOPHILS 0.3 % (0.0-2.0); % EOSINOPHILS 0.3 % (0.0-5.0); % LYMPHOCYTES 11.7 % (20.0-50.0); % MONOCYTES 9.3 % (2.0-10.0); % NEUTROPHILS 78.4 % (40.0-80.0); HEMATOCRIT 40.9 % (39.0-49.0); HEMOGLOBIN 13.8 gm/dL (13.2-17.3); MEAN CELL VOLUME 92.8 fl (80-99); MEAN CORPUSCULAR HEMOGLOBIN 31.2 pg (26.0-30.0); MEAN CORPUSCULAR HGB CONC 33.6 pg (28.0-36.0); MEAN PLATELET VOLUME 7.5 fl; NEUTROPHILE ABSOLUTE 7.6 Th/cmm (1.8-8.0); PLATELET COUNT 355 Th/cmm (150-400); RED BLOOD COUNT 4.41 Mil/cmm (4.30-5.70); RED CELL DISTRIBUTION WIDTH 13.4 % (11.5-20.0); WHITE BLOOD COUNT 9.6 Th/cmm (4.8-10.8)
[2016-12-28 07:30] LABS: ALB/GLOB RATIO 1.1 (1.0-1.8); ALKALINE PHOSPHATASE 57 U/L (34-104); ANION GAP 9.8 (7.0-16.0); BILIRUBIN,TOTAL 0.4 mg/dL (0.3-1.0); BUN - UREA NITROGEN 14 mg/dL (7-25); CALCIUM SERUM 8.6 mg/dL (8.6-10.3); CARBON DIOXIDE 28.7 mEq/L (21.0-31.0); CHLORIDE 101 mEq/L (98-107); CREATININE - SERUM 0.4 mg/dL (0.7-1.3); GLUCOSE 108 mg/dL (70-105); LIPASE 5 U/L (11-82); MAGNESIUM 2.3 mg/dL (1.9-2.7); POTASSIUM SERUM 3.5 mEq/L (3.5-5.1); SGOT 16 U/L (13-39); SGPT/ALT 21 U/L (7-52); SODIUM SERUM 136 mEq/L (136-145)
[2016-12-28] MEDS: Metoclopramide 5 mg/mL 2mL Vial IVP SCH (08:35)
--- NOTE | 2016-12-28 09:59 | Diagnostic Imaging Report ---
Left elbow (single view, portable) HISTORY: Pain No acute abnormalities. No fractures. Calcific density noted adjacent the lateral aspect of humeral head consistent with calcific tendinitis. Narrowing hypertrophic bone formation seen about the acromioclavicular joint. IMPRESSION: 1. No acute bony abnormalities 2. Degenerative changes 3. Findings consistent with calcific tendinitis
[2016-12-28] MEDS ORDERED: Diatrizoate Meglumine/Diatri 30 mL Sol PO ONE (10:00)
[2016-12-28] MEDS ORDERED: Sodium Phosphate 20 MMOLE in Sodium Chloride 0.9% 250 ML IV ONE (10:30)
--- NOTE | 2016-12-28 10:32 | History & Physical ---
ADMIT DATE: 12/28/2016 HISTORY OF PRESENT ILLNESS: Please refer to the previous HPI and recent discharge summary done. The patient was discharged to [facility] yesterday with the diagnosis of nausea, vomiting, rule out SBO. He underwent workup and upon discharge was able to tolerate his p.o.'s well. However, developed recurrent nausea, vomiting since going back to board and supportive care and now presented to the ER with the above-mentioned complaints. The patient has a significant medical history for hypertension and mental retardation among other things. The patient was readmitted and now resides in the medical/surgical floor. PHYSICAL EXAMINATION: VITAL SIGNS: Temperature 98.2, pulse 86, BP 138/65, respirations 18, satting 93-96% on room air. GENERAL: He is a well-nourished, thin and developmentally delayed male, not in acute distress. CARDIAC: Regular rate and rhythm without any murmurs. LUNGS: Clear to auscultation bilaterally. ABDOMEN: Soft, supple. There is no tenderness to palpation at this time. LOWER EXTREMITIES: There is normoactive bowel sounds. LABORATORY STUDIES: White count 11.9, H and H 13/40 with a platelet count of 313. Sodium 134, potassium 3.2. Otherwise, within normal limits. Lipase 3. DIAGNOSTICS: There is no diagnostics currently, but from his previous admission, he had a CT of the abdomen and pelvis showing rectal wall was thickened and contain fecal hematuria, questionable proctitis, light distention of the proximal small bowel loops, recent questionable possible early small bowel obstruction. KUB done on 12/23/2016, showing no evidence of obstruction. IMPRESSION AND PLAN: 1. Persistent nausea, vomiting, rule out small bowel obstruction versus recurrent ileus. 2. Recent ileus. 3. Electrolyte imbalance. 4. History of intellectual disability. 5. History of Down syndrome. 6. History of dyslipidemia. 7. History of hypertension. PLAN: The patient has been admitted to Med/Surg where he has been placed on IV fluids and supportive care. The patient also has been placed on empiric IV antibiotics with Cipro q. 12 and a GI eval will be asked for given his recurrent symptoms. Small bowel follow through has been also asked for. [facility]# [id number]
--- NOTE | 2016-12-28 14:16 | Admit Criteria Form ---
Admit Criteria Forms - Admit Criteria Diagnosis: VOMITING Clinical Indications for Admission to Inpatient Care ( Place 'X' for any and all applicable criteria): Admission is indicated for 1 or more of the following(1)(2)(3): [ ]I. Complete or partial gastrointestinal obstruction [ ]II. Vomiting due to significant metabolic derangement (eg, severe hypercalcemia, diabetic ketoacidosis) [ ]III. Other cause of vomiting requiring hospitalization (eg, poisoning, increased intracranial pressure) [X ]IV. Inpatient admission required rather than observation care because of 1 or more of the following [ ]i) Hemodynamic instability [ ]ii) Vomiting that is severe or persistent indicated by 1 or more of the following 1) Numerous episodes of vomiting in past 24hours (eg, every 1 to 2 hours) 2) Suggests severe underlying cause or complication (eg , projectile, feculent, bilious, coffee ground, bloody) 3) Appropriate antiemetic treatment (eg, repeated oral or parenteral dosing) does not sufficiently reduce vomiting within 12 to 24 hours of treatment 4) Treatment regimen necessary to adequately control vomiting requires inpatient level of care (eg, not immediately available in outpatient setting) [ ]iii) Severe electrolyte abnormalities requiring inpatient care [ ]iv) Severe pain requiring acute inpatient management( Continuous or frequent (eg, every 2 to 4 hours) parental analgesics or analgesic regimen that can only be performed or initiated in inpatient setting) [ ]v) High fever or infection requiring inpatient admission as indicated by 1 or more of the following(7)(8): [ ]1) Appropriate outpatient or observation care antimicrobial treatment unavailable, not effective, or not feasible [ ]2) Documented bacteremia [ ]3) Temp >104.9 degrees F (40.5 degrees C) (oral) [ ]4) Temp >103.1 degrees F (39.5 C) (oral) or <96.8 degrees F (36 C) (rectal) that does not respond to all emergency treatment measures [ ]vi) Acute renal failure [ ]vii) IV fluid required rather than oral rehydration to replace significant on going losses (greater than 3 L/m2 per day) [ ]viii) Parenteral nutrition regimen that must be implemented on inpatient basis [ X]ix) Other condition, treatment or monitoring requiring inpatient admission Extended stay beyond goal length of stay may be needed for(1)(4): [ ]a) Severe vomiting [ ]b) Persistent vomiting, vital sign changes, severe electrolyte imbalance , or diagnosed cause of vomiting that requires continued hospitalization (eg, gastrointestinal obstruction , increased intracranial pressure) [ ]c) Surgery to treat identified causes of vomiting (eg, bowel obstruction , intracranial process) [ ]d) Comorbid illness that requires inpatient care (eg, acute heart failure , renal failure) [ ]e) Need for inpatient endoscopy The original [employer] content created by [employer] has been revised. The portions of the content which have been revised are identified through the use of italic text or in bold, and [facility] has neither reviewed nor approved the modified material. All other unmodified content is copyright [facility]. Please see references footnoted in the original [facility] edition 2016 Admit Criteria Met?: Yes
--- NOTE | 2016-12-29 01:56 | Consultation ---
DATE OF CONSULTATION: 12/28/2016 REASON FOR CONSULTATION: Small bowel obstruction. HISTORY OF PRESENT ILLNESS: This consult was obtained through the courtesy of Dr. Bhatt for this 41-year-old with history of mental retardation, Down syndrome, hearing loss, presenting to the hospital because of nausea, vomiting, also because of persistent vomiting. The patient was in the hospital a few days ago, his condition improved, he was discharged home to the retirement, but then presented with the same problem again, so this time is vomiting constantly, the patient is unable to provide any history. PAST MEDICAL HISTORY: Down syndrome, mental retardation, deafness. PAST SURGICAL HISTORY: Negative. SOCIAL HISTORY: Nonsmoker, nonalcoholic, IV drug abuser. ALLERGIES: No known drug allergy. FAMILY HISTORY: Noncontributory. REVIEW OF SYSTEMS: Unobtainable. MEDICATIONS: The patient is on Tylenol, carbamazepine, Cipro, Reglan, Zofran, Protonix. PHYSICAL EXAMINATION: GENERAL: The patient is awake, responsive, nonverbal. VITAL SIGNS: Blood pressure is 120/68, heart rate 89, respiratory rate 18, temperature is 98.9. HEENT: Head and neck, pupils reactive to light. Extraocular muscles could not be tested. Oral cavity, no lesion. NECK: Supple. No jugular venous distention. No carotid bruit or lymph node. CHEST: Good respiratory movements. LUNGS: Clear to auscultation. CARDIOVASCULAR: Regular rate and rhythm. No murmur or gallop. ABDOMEN: Soft, positive bowel sounds. EXTREMITIES: Lower extremities, no edema. CENTRAL NERVOUS SYSTEM: Unable to evaluate, but the patient is moving 4 extremities. LABORATORY DATA: White count 9.6, H and H are normal, platelets of 355, phosphorus 2.4, albumin is 3.3. IMPRESSION: A 41-year-old presenting with persistent vomiting. ASSESSMENT AND PLAN: Persistent vomiting, rule out gastric outlet obstruction versus small-bowel obstruction versus ileus versus peptic ulcer disease. RECOMMENDATIONS: 1. Monitor labs. 2. Small bowel follow-through. 3. If negative, then EGD. 4. Further recommendations to follow depending on the above. Other medical problems such as mental retardation, down syndrome, etc. as per Miller Mendoza. Thank you, Dr. Bhatt, for allowing me to participate in the care of this patient. If you have any further questions, please let me know. [facility]# [id number] MTDD
[2016-12-29] MEDS: Metoclopramide 5 mg/mL 2mL Vial IVP SCH ×3 (03:32→21:52)
[2016-12-29] MEDS: Ciprofloxacin 200mg Premix PB 200 MG/100 ML BAG IV SCH ×2 (03:33→14:32)
[2016-12-29 05:18] LABS: % BASOPHILS 0.6 % (0.0-2.0); % EOSINOPHILS 0.5 % (0.0-5.0); % LYMPHOCYTES 19.5 % (20.0-50.0); % MONOCYTES 10.7 % (2.0-10.0); % NEUTROPHILS 68.7 % (40.0-80.0); HEMATOCRIT 38.1 % (39.0-49.0); HEMOGLOBIN 13.1 gm/dL (13.2-17.3); MEAN CELL VOLUME 91.6 fl (80-99); MEAN CORPUSCULAR HEMOGLOBIN 31.5 pg (26.0-30.0); MEAN CORPUSCULAR HGB CONC 34.4 pg (28.0-36.0); MEAN PLATELET VOLUME 7.2 fl; NEUTROPHILE ABSOLUTE 6.1 Th/cmm (1.8-8.0); PLATELET COUNT 309 Th/cmm (150-400); RED BLOOD COUNT 4.16 Mil/cmm (4.30-5.70); RED CELL DISTRIBUTION WIDTH 13.6 % (11.5-20.0); WHITE BLOOD COUNT 8.9 Th/cmm (4.8-10.8)
[2016-12-29 05:35] LABS: ALKALINE PHOSPHATASE 46 U/L (34-104); ANION GAP 6.6 (7.0-16.0); BILIRUBIN,TOTAL 0.4 mg/dL (0.3-1.0); BUN - UREA NITROGEN 11 mg/dL (7-25); CALCIUM SERUM 8.1 mg/dL (8.6-10.3); CARBON DIOXIDE 30.5 mEq/L (21.0-31.0); CHLORIDE 104 mEq/L (98-107); CREATININE - SERUM 0.5 mg/dL (0.7-1.3); GLUCOSE 112 mg/dL (70-105); MAGNESIUM 2.1 mg/dL (1.9-2.7); POTASSIUM SERUM 3.1 mEq/L (3.5-5.1); SGOT 11 U/L (13-39); SGPT/ALT 14 U/L (7-52); SODIUM SERUM 138 mEq/L (136-145)
[2016-12-29] MEDS: D5-0.45NS 1,000 ML IV SCH (08:11)
--- NOTE | 2016-12-29 10:47 | Diagnostic Imaging Report ---
Small bowel follow-through HISTORY: Pain, abdominal distention The preliminary logistics system engineer radiograph demonstrates residual radiopaque contrast within the rectum along with multiple loops of dilated small bowel. Severe chronic deformity and dislocation noted about the right hip. Water-soluble contrast was instilled into the stomach for nasogastric tube. Sequential radiographs demonstrate prolonged retention of contrast within the stomach. Markedly delayed transit through the small bowel. However, a 22 hours, contrast is seen within nondilated colon. There remains mildly dilated air-filled loops of small bowel. The overall appearance suggests changes associated with a partial distal small bowel obstruction. Clinical correlation is needed. IMPRESSION: 1. Prolonged gastric retention with delayed transit of contrast through the small bowel that exhibits mild. The overall appearance suggests changes of a possible distal small bowel obstruction. Clinical correlation is needed.
[2016-12-29] MEDS: KCL 20mEq/100mL Premix 40 MEQ/200 ML PIGGYBACK IV SCH ×2 (13:36→18:09)
[2016-12-29] MEDS ORDERED: Metoclopramide 5 mg/mL 2mL Vial IVP PRN (17:38)
--- NOTE | 2016-12-29 17:41 | General Progress Note ---
Subjective - Review of Systems Service Date: 12/29/16 Events since last encounter: readmitted for persistent vomiting SBO series - gastroparesis and possible distal SBO start Reglan needs EGD might need surgical intervention Objective - Results Result Diagrams: 12/29/16 05:00 12/29/16 05:00 Recent Labs: Laboratory Last Values WBC 8.9 Th/cmm (4.8-10.8) 12/29/16 05:00 RBC 4.16 Mil/cmm (4.30-5.70) L 12/29/16 05:00 Hgb 13.1 gm/dL (13.2-17.3) L 12/29/16 05:00 Hct 38.1 % (39.0-49.0) L 12/29/16 05:00 MCV 91.6 fl (80-99) 12/29/16 05:00 MCH 31.5 pg (26.0-30.0) H 12/29/16 05:00 MCHC Differential 34.4 pg (28.0-36.0) 12/29/16 05:00 RDW 13.6 % (11.5-20.0) 12/29/16 05:00 Plt Count 309 Th/cmm (150-400) 12/29/16 05:00 MPV 7.2 fl 12/29/16 05:00 Neutrophils % 68.7 % (40.0-80.0) 12/29/16 05:00 Lymphocytes % 19.5 % (20.0-50.0) L 12/29/16 05:00 Monocytes % 10.7 % (2.0-10.0) H 12/29/16 05:00 Eosinophils % 0.5 % (0.0-5.0) 12/29/16 05:00 Basophils % 0.6 % (0.0-2.0) 12/29/16 05:00 Sodium 138 mEq/L (136-145) 12/29/16 05:00 Potassium 3.1 mEq/L (3.5-5.1) L 12/29/16 05:00 Chloride 104 mEq/L (98-107) 12/29/16 05:00 Carbon Dioxide 30.5 mEq/L (21.0-31.0) 12/29/16 05:00 Anion Gap 6.6 (7.0-16.0) L 12/29/16 05:00 BUN 11 mg/dL (7-25) 12/29/16 05:00 Creatinine 0.5 mg/dL (0.7-1.3) L 12/29/16 05:00 Est GFR ( Amer) > 60.0 ml/min (>90) 12/29/16 05:00 Est GFR (Non-Af Amer) > 60.0 ml/min 12/29/16 05:00 BUN/Creatinine Ratio 22.0 12/29/16 05:00 Glucose 112 mg/dL (70-105) H 12/29/16 05:00 Calcium 8.1 mg/dL (8.6-10.3) L 12/29/16 05:00 Phosphorus 2.0 mg/dL (2.5-5.0) L 12/29/16 05:00 Magnesium 2.1 mg/dL (1.9-2.7) 12/29/16 05:00 Total Bilirubin 0.4 mg/dL (0.3-1.0) 12/29/16 05:00 AST 11 U/L (13-39) L 12/29/16 05:00 ALT 14 U/L (7-52) 12/29/16 05:00 Alkaline Phosphatase 46 U/L (34-104) 12/29/16 05:00 Total Protein 5.6 gm/dL (6.0-8.3) L 12/29/16 05:00 Albumin 2.8 gm/dL (4.2-5.5) L 12/29/16 05:00 Globulin 2.8 gm/dL 12/29/16 05:00 Albumin/Globulin Ratio 1.0 (1.0-1.8) 12/29/16 05:00 Lipase 5 U/L (11-82) L 12/28/16 06:22 - Physical Exam Vitals and I&O: Vital Signs Temp 98.1 F 12/29/16 12:00 Pulse 109 12/29/16 12:00 Resp 16 12/29/16 12:00 BP 119/90 12/29/16 12:00 Pulse Ox 97 12/29/16 12:00 Intake & Output 12/28/16 12/29/16 12/29/16 18:59 06:59 18:59 Intake Total 1100 100 Balance 1100 100 Intake: Intake, IV Amount 1100 100 Ciprofloxacin 200mg 100 100 Premix PB 200 mg In 100 ml @ 100 mls/hr IV Q12H [facility] Rx#:[id number] D5-0.45NS 1,000 ml @ 75 1000 mls/hr IV .[id number] [facility] Rx #:[id number] Oral 0 0 Other: # Voids 4 2 # Bowel Movements 0 Active Medications: Current Medications Acetaminophen (Tylenol 650mg Supp) 650 mg RC Q8H PRN PRN Reason: Pain or Fever >101 Stop: 02/26/17 01:23 Carbamazepine (Tegretol) 200 mg PO Q8HR [facility] PRN Reason: Protocol Stop: 02/26/17 04:59 Last Admin: 12/29/16 13:41 Dose: Not Given Ciprofloxacin (Cipro 200mg Premix Pb) 200 mg in 100 mls @ 100 mls/hr IV Q12H [facility] Stop: 02/26/17 02:59 Last Admin: 12/29/16 14:32 Dose: 100 mls/hr Potassium Chloride 10 meq/ (Dextrose) 1,005 mls @ 75 mls/hr IV .[id number] [facility] Stop: 02/27/17 12:29 Metoclopramide HCl (Reglan) 10 mg IVP Q12HR [facility] Stop: 02/26/17 08:59 Last Admin: 12/29/16 08:10 Dose: 10 mg Metoclopramide HCl (Reglan) 10 mg IVP Q8HR PRN PRN Reason: Abdominal Pain Stop: 02/27/17 17:37 Ondansetron HCl (Zofran) 4 mg IV Q4H PRN PRN Reason: Nausea / Vomiting Stop: 02/26/17 01:23 Pantoprazole Sodium (Protonix) 40 mg IVP DAILY [facility] Stop: 02/26/17 08:59 Last Admin: 12/29/16 08:10 Dose: 40 mg
[2016-12-29] MEDS ORDERED: KCL 20mEq/100mL Premix 20 MEQ/100 ML PIGGYBACK IV ONE (17:44)
[2016-12-30] MEDS: Ciprofloxacin 200mg Premix PB 200 MG/100 ML BAG IV SCH ×2 (03:13→14:28)
[2016-12-30 05:55] LABS: % BASOPHILS 0.8 % (0.0-2.0); % LYMPHOCYTES 31.3 % (20.0-50.0); % MONOCYTES 13.4 % (2.0-10.0); % NEUTROPHILS 52.5 % (40.0-80.0); HEMATOCRIT 37.9 % (39.0-49.0); MEAN CELL VOLUME 91.4 fl (80-99); MEAN CORPUSCULAR HEMOGLOBIN 31.3 pg (26.0-30.0); MEAN CORPUSCULAR HGB CONC 34.3 pg (28.0-36.0); MEAN PLATELET VOLUME 7.2 fl; NEUTROPHILE ABSOLUTE 2.8 Th/cmm (1.8-8.0); PLATELET COUNT 302 Th/cmm (150-400); RED BLOOD COUNT 4.14 Mil/cmm (4.30-5.70); RED CELL DISTRIBUTION WIDTH 13.2 % (11.5-20.0)
[2016-12-30 06:33] LABS: ANION GAP 12.8 (7.0-16.0); BUN - UREA NITROGEN 5 mg/dL (7-25); BUN/CREATININE RATIO 8.3; CALCIUM SERUM 8.5 mg/dL (8.6-10.3); CARBON DIOXIDE 24.3 mEq/L (21.0-31.0); CHLORIDE 101 mEq/L (98-107); CREATININE - SERUM 0.6 mg/dL (0.7-1.3); GLUCOSE 92 mg/dL (70-105); POTASSIUM SERUM 3.1 mEq/L (3.5-5.1); SODIUM SERUM 135 mEq/L (136-145)
[2016-12-30 06:39] LABS: WHITE BLOOD COUNT 5.2 Th/cmm (4.8-10.8)
[2016-12-30 06:53] LABS: INR 1.11 (0.5-1.4); PROTHROMBIN TIME (TEST) 11.6 SECONDS (9.5-11.5)
[2016-12-30] MEDS: Metoclopramide 5 mg/mL 2mL Vial IVP SCH ×2 (08:40→20:52)
--- NOTE | 2016-12-30 09:10 | Diagnostic Imaging Report ---
Portable chest x-ray HISTORY: Nasogastric tube placement, shortness of breath Allowing for a poor inspiration, no focal pulmonary processes are seen. The heart size is normal. A nasogastric tube extends into the region of the stomach. Residual radiopaque contrast is seen within nondilated large bowel. Mildly dilated small bowel noted in the upper abdomen. IMPRESSION: 1. Nasogastric tube extending into the region of the stomach 2. No focal pulmonary processes 3. Residual radiopaque contrast within nondilated colon along with mildly dilated loops of small bowel. Significance should be correlated clinically.
--- NOTE | 2016-12-30 10:56 | General Progress Note ---
Subjective - Review of Systems Service Date: 12/30/16 Events since last encounter: KUB today contrast still in SB discussed with Dr. Wilder - EGD in AM will likely need gastro-jejunostomy if there is gastric outlet obstruction possible SBO - might need lysis or resection as needed unable to reach mother via phone Objective - Results Result Diagrams: 12/30/16 05:25 12/30/16 05:25 Recent Labs: Laboratory Last Values WBC 5.2 Th/cmm (4.8-10.8) D 12/30/16 05:25 RBC 4.14 Mil/cmm (4.30-5.70) L 12/30/16 05:25 Hgb 13.0 gm/dL (13.2-17.3) L 12/30/16 05:25 Hct 37.9 % (39.0-49.0) L 12/30/16 05:25 MCV 91.4 fl (80-99) 12/30/16 05:25 MCH 31.3 pg (26.0-30.0) H 12/30/16 05:25 MCHC Differential 34.3 pg (28.0-36.0) 12/30/16 05:25 RDW 13.2 % (11.5-20.0) 12/30/16 05:25 Plt Count 302 Th/cmm (150-400) 12/30/16 05:25 MPV 7.2 fl 12/30/16 05:25 Neutrophils % 52.5 % (40.0-80.0) 12/30/16 05:25 Lymphocytes % 31.3 % (20.0-50.0) 12/30/16 05:25 Monocytes % 13.4 % (2.0-10.0) H 12/30/16 05:25 Eosinophils % 2.0 % (0.0-5.0) 12/30/16 05:25 Basophils % 0.8 % (0.0-2.0) 12/30/16 05:25 PT 11.6 SECONDS (9.5-11.5) H 12/30/16 05:25 INR 1.11 (0.5-1.4) 12/30/16 05:25 Sodium 135 mEq/L (136-145) L 12/30/16 05:25 Potassium 3.1 mEq/L (3.5-5.1) L 12/30/16 05:25 Chloride 101 mEq/L (98-107) 12/30/16 05:25 Carbon Dioxide 24.3 mEq/L (21.0-31.0) 12/30/16 05:25 Anion Gap 12.8 (7.0-16.0) 12/30/16 05:25 BUN 5 mg/dL (7-25) L 12/30/16 05:25 Creatinine 0.6 mg/dL (0.7-1.3) L 12/30/16 05:25 Est GFR ( Amer) > 60.0 ml/min (>90) 12/30/16 05:25 Est GFR (Non-Af Amer) > 60.0 ml/min 12/30/16 05:25 BUN/Creatinine Ratio 8.3 12/30/16 05:25 Glucose 92 mg/dL (70-105) 12/30/16 05:25 Calcium 8.5 mg/dL (8.6-10.3) L 12/30/16 05:25 Phosphorus 2.0 mg/dL (2.5-5.0) L 12/29/16 05:00 Magnesium 2.0 mg/dL (1.9-2.7) 12/30/16 05:25 Total Bilirubin 0.4 mg/dL (0.3-1.0) 12/29/16 05:00 AST 11 U/L (13-39) L 12/29/16 05:00 ALT 14 U/L (7-52) 12/29/16 05:00 Alkaline Phosphatase 46 U/L (34-104) 12/29/16 05:00 Total Protein 5.6 gm/dL (6.0-8.3) L 12/29/16 05:00 Albumin 2.8 gm/dL (4.2-5.5) L 12/29/16 05:00 Globulin 2.8 gm/dL 12/29/16 05:00 Albumin/Globulin Ratio 1.0 (1.0-1.8) 12/29/16 05:00 Lipase 5 U/L (11-82) L 12/28/16 06:22 - Physical Exam Vitals and I&O: Vital Signs Temp 97.7 F 12/30/16 08:00 Pulse 79 12/30/16 08:00 Resp 17 12/30/16 08:00 BP 112/57 12/30/16 08:00 Pulse Ox 99 12/30/16 08:00 Intake & Output 12/29/16 12/30/16 12/30/16 18:59 06:59 18:59 Intake Total 100 Balance 100 Intake: Intake, IV Amount 100 Ciprofloxacin 200mg 100 Premix PB 200 mg In 100 ml @ 100 mls/hr IV Q12H [facility] Rx#:[id number] Other: # Voids 6 4 Active Medications: Current Medications Acetaminophen (Tylenol 650mg Supp) 650 mg RC Q8H PRN PRN Reason: Pain or Fever >101 Stop: 02/26/17 01:23 Carbamazepine (Tegretol) 200 mg PO Q8HR [facility] PRN Reason: Protocol Stop: 02/26/17 04:59 Last Admin: 12/30/16 05:54 Dose: 200 mg Ciprofloxacin (Cipro 200mg Premix Pb) 200 mg in 100 mls @ 100 mls/hr IV Q12H [facility] Stop: 02/26/17 02:59 Last Admin: 12/30/16 03:13 Dose: 100 mls/hr Potassium Chloride 10 meq/ (Dextrose) 1,005 mls @ 75 mls/hr IV .[id number] [facility] Stop: 02/27/17 12:29 Last Admin: 12/29/16 21:48 Dose: 75 mls/hr Metoclopramide HCl (Reglan) 10 mg IVP Q12HR [facility] Stop: 02/26/17 08:59 Last Admin: 12/30/16 08:40 Dose: 10 mg Metoclopramide HCl (Reglan) 10 mg IVP Q8HR PRN PRN Reason: Abdominal Pain Stop: 02/27/17 17:37 Ondansetron HCl (Zofran) 4 mg IV Q4H PRN PRN Reason: Nausea / Vomiting Stop: 02/26/17 01:23 Pantoprazole Sodium (Protonix) 40 mg IVP DAILY [facility] Stop: 02/26/17 08:59 Last Admin: 12/30/16 08:40 Dose: 40 mg
[2016-12-30] MEDS: KCL 20mEq/100mL Premix 40 MEQ/200 ML PIGGYBACK IV SCH ×2 (11:23→13:18)
[2016-12-31] MEDS: Ciprofloxacin 200mg Premix PB 200 MG/100 ML BAG IV SCH ×2 (03:12→15:00)
[2016-12-31 06:14] LABS: % BASOPHILS 0.5 % (0.0-2.0); % EOSINOPHILS 2.7 % (0.0-5.0); % LYMPHOCYTES 25.6 % (20.0-50.0); % MONOCYTES 12.5 % (2.0-10.0); % NEUTROPHILS 58.7 % (40.0-80.0); MEAN CELL VOLUME 92.9 fl (80-99); MEAN CORPUSCULAR HEMOGLOBIN 31.1 pg (26.0-30.0); MEAN CORPUSCULAR HGB CONC 33.4 pg (28.0-36.0); MEAN PLATELET VOLUME 7.1 fl; NEUTROPHILE ABSOLUTE 3.2 Th/cmm (1.8-8.0); PLATELET COUNT 340 Th/cmm (150-400); RED CELL DISTRIBUTION WIDTH 13.3 % (11.5-20.0); WHITE BLOOD COUNT 5.4 Th/cmm (4.8-10.8)
[2016-12-31 06:38] LABS: ALKALINE PHOSPHATASE 61 U/L (34-104); ANION GAP 7.9 (7.0-16.0); BILIRUBIN,TOTAL 0.5 mg/dL (0.3-1.0); BUN - UREA NITROGEN 5 mg/dL (7-25); CARBON DIOXIDE 28.6 mEq/L (21.0-31.0); CHLORIDE 102 mEq/L (98-107); CREATININE - SERUM 0.5 mg/dL (0.7-1.3); GLUCOSE 102 mg/dL (70-105); MAGNESIUM 2.2 mg/dL (1.9-2.7); POTASSIUM SERUM 3.5 mEq/L (3.5-5.1); SGOT 15 U/L (13-39); SGPT/ALT 18 U/L (7-52); SODIUM SERUM 135 mEq/L (136-145)
[2016-12-31] MEDS: Metoclopramide 5 mg/mL 2mL Vial IVP SCH ×2 (09:57→20:20)
[2016-12-31] MEDS ORDERED: KCL 20mEq/100mL Premix 20 MEQ/100 ML PIGGYBACK IV SCH (10:45)
[2016-12-31] MEDS ORDERED: Midazolam 1mg/ml 2 ml vial IV ONE (11:40)
[2016-12-31] MEDS ORDERED: Meperidine 50 mg/mL 1mL Syr ONE (11:41)
[2016-12-31] MEDS ORDERED: Meperidine 25 mg/mL 1mL Syr IVP PRN (12:21)
[2016-12-31] MEDS ORDERED: Lactated Ringer 1,000 ML IV SCH (12:30)
[2016-12-31] MEDS: metroNIDAZOLE 500mg/NS 100mL 500 MG in Premix Fluid 1 BAG IV SCH ×2 (12:30→20:15)
[2016-12-31] MEDS ORDERED: Neostigmine 10mg/10mL Vial ONE (12:51)
--- NOTE | 2016-12-31 13:15 | General Progress Note ---
Subjective - Review of Systems Service Date: 12/31/16 Events since last encounter: operation: exploratory laparotomy with resection of infarcted (etiology?) distal ileum Objective - Results Result Diagrams: 12/31/16 05:32 12/31/16 05:32 Recent Labs: Laboratory Last Values WBC 5.4 Th/cmm (4.8-10.8) 12/31/16 05:32 RBC 4.20 Mil/cmm (4.30-5.70) L 12/31/16 05:32 Hgb 13.0 gm/dL (13.2-17.3) L 12/31/16 05:32 Hct 39.0 % (39.0-49.0) 12/31/16 05:32 MCV 92.9 fl (80-99) 12/31/16 05:32 MCH 31.1 pg (26.0-30.0) H 12/31/16 05:32 MCHC Differential 33.4 pg (28.0-36.0) 12/31/16 05:32 RDW 13.3 % (11.5-20.0) 12/31/16 05:32 Plt Count 340 Th/cmm (150-400) 12/31/16 05:32 MPV 7.1 fl 12/31/16 05:32 Neutrophils % 58.7 % (40.0-80.0) 12/31/16 05:32 Lymphocytes % 25.6 % (20.0-50.0) 12/31/16 05:32 Monocytes % 12.5 % (2.0-10.0) H 12/31/16 05:32 Eosinophils % 2.7 % (0.0-5.0) 12/31/16 05:32 Basophils % 0.5 % (0.0-2.0) 12/31/16 05:32 PT 11.6 SECONDS (9.5-11.5) H 12/30/16 05:25 INR 1.11 (0.5-1.4) 12/30/16 05:25 Sodium 135 mEq/L (136-145) L 12/31/16 05:32 Potassium 3.5 mEq/L (3.5-5.1) 12/31/16 05:32 Chloride 102 mEq/L (98-107) 12/31/16 05:32 Carbon Dioxide 28.6 mEq/L (21.0-31.0) 12/31/16 05:32 Anion Gap 7.9 (7.0-16.0) 12/31/16 05:32 BUN 5 mg/dL (7-25) L 12/31/16 05:32 Creatinine 0.5 mg/dL (0.7-1.3) L 12/31/16 05:32 Est GFR ( Amer) > 60.0 ml/min (>90) 12/31/16 05:32 Est GFR (Non-Af Amer) > 60.0 ml/min 12/31/16 05:32 BUN/Creatinine Ratio 10.0 12/31/16 05:32 Glucose 102 mg/dL (70-105) 12/31/16 05:32 Calcium 9.0 mg/dL (8.6-10.3) 12/31/16 05:32 Phosphorus 2.0 mg/dL (2.5-5.0) L 12/29/16 05:00 Magnesium 2.2 mg/dL (1.9-2.7) 12/31/16 05:32 Total Bilirubin 0.5 mg/dL (0.3-1.0) 12/31/16 05:32 AST 15 U/L (13-39) 12/31/16 05:32 ALT 18 U/L (7-52) 12/31/16 05:32 Alkaline Phosphatase 61 U/L (34-104) 12/31/16 05:32 Total Protein 6.6 gm/dL (6.0-8.3) 12/31/16 05:32 Albumin 3.3 gm/dL (4.2-5.5) L 12/31/16 05:32 Globulin 3.3 gm/dL 12/31/16 05:32 Albumin/Globulin Ratio 1.0 (1.0-1.8) 12/31/16 05:32 Lipase 5 U/L (11-82) L 12/28/16 06:22 - Physical Exam Vitals and I&O: Vital Signs Temp 97.2 F 12/31/16 08:00 Pulse 96 12/31/16 08:00 Resp 18 12/31/16 12:00 BP 100/72 12/31/16 08:00 Pulse Ox 95 12/31/16 08:00 Intake & Output 12/30/16 12/31/16 12/31/16 18:59 06:59 18:59 Intake Total 195.833 50 Balance 195.833 50 Intake: Intake, IV Amount 195.833 Ciprofloxacin 200mg 100 Premix PB 200 mg In 100 ml @ 100 mls/hr IV Q12H [facility] Rx#:[id number] KCL 20mEq/100mL Premix 40 95.833 meq In 200 ml @ 50 mls/ hr IV Q2H [facility] Rx#: [id number] Tube Feeding 50 Other: # Voids 4 1 Active Medications: Current Medications Acetaminophen (Tylenol 650mg Supp) 650 mg RC Q8H PRN PRN Reason: Pain or Fever >101 Stop: 02/26/17 01:23 Carbamazepine (Tegretol) 200 mg PO Q8HR [facility] PRN Reason: Protocol Stop: 02/26/17 04:59 Last Admin: 12/31/16 04:57 Dose: Not Given Ciprofloxacin (Cipro 200mg Premix Pb) 200 mg in 100 mls @ 100 mls/hr IV Q12H [facility] Stop: 02/26/17 02:59 Last Admin: 12/31/16 03:12 Dose: 100 mls/hr Potassium Chloride 10 meq/ (Dextrose) 1,005 mls @ 75 mls/hr IV .[id number] [facility] Stop: 02/27/17 12:29 Last Admin: 12/29/16 21:48 Dose: 75 mls/hr Potassium Chloride (Potassium Chloride) 20 meq in 100 mls @ 50 mls/hr IV Q2H [facility] Stop: 12/31/16 14:44 Piperacillin Sod/Tazobactam (Sod 3.375 gm/ Sodium Chloride) 50 mls @ 100 mls/ hr IV Q6HR [facility] Stop: 03/01/17 11:59 Metronidazole 500 mg/ (Miscellaneous) 100 mls @ 100 mls/hr IV Q8H [facility] Stop: 03/01/17 11:59 Lactated Ringer's (Lactated Ringer) 1,000 mls @ 0 mls/hr IV .Q0M [facility] PRN Reason: TKO Stop: 12/31/16 16:00 Meperidine HCl (Demerol) 12.5 mg IVP UD PRN PRN Reason: POST-OP PAIN Stop: 12/31/16 16:00 Metoclopramide HCl (Reglan) 10 mg IVP Q12HR [facility] Stop: 02/26/17 08:59 Last Admin: 12/31/16 09:57 Dose: 10 mg Metoclopramide HCl (Reglan) 10 mg IVP Q8HR PRN PRN Reason: Abdominal Pain Stop: 02/27/17 17:37 Morphine Sulfate (Morphine) 2 mg IVP Q4HR PRN PRN Reason: Abdominal Pain Stop: 03/01/17 11:47 Ondansetron HCl (Zofran) 4 mg IV Q4H PRN PRN Reason: Nausea / Vomiting Stop: 02/26/17 01:23 Ondansetron HCl (Zofran) 4 mg IV UD PRN PRN Reason: Nausea / Vomiting Stop: 12/31/16 16:00 Pantoprazole Sodium (Protonix) 40 mg IVP DAILY [facility] Stop: 02/26/17 08:59 Last Admin: 12/31/16 09:57 Dose: 40 mg
[2016-12-31] MEDS: Morphine Sulfate 2 mg/mL 1mL Syr IVP PRN (15:50)
[2016-12-31] MEDS: KCL 20mEq/100mL Premix 20 MEQ/100 ML PIGGYBACK IV SCH ×2 (17:20→20:14)
--- NOTE | 2016-12-31 18:34 | Operative Report ---
DATE OF SURGERY: 12/31/2016 PREOPERATIVE DIAGNOSES: 1. Small-bowel obstruction. 2. Gastritis. 3. Down syndrome. 4. Dyslipidemia. 5. Hypertension. POSTOPERATIVE DIAGNOSES: 1. Small-bowel obstruction. 2. Gastritis. 3. Down syndrome. 4. Dyslipidemia. 5. Hypertension. OPERATION DONE: Exploratory laparotomy with: 1. Resection of hemorrhagic distal ileum with [id number]-cw-[id number] anastomosis. 2. Incidental appendectomy. SURGEON: Rohan White MD ANESTHESIA: General. ANESTHESIOLOGIST: Dr. Leon Mcallister. ESTIMATED BLOOD LOSS: 10 mL. INDICATIONS FOR SURGERY: The patient with persistent vomiting. Small bowel series showed distal small-bowel obstruction and gastroparesis. EGD was done prior to this surgery and gastritis was found, no distal gastric outlet obstruction was noted. OPERATIVE FINDINGS: Approximately a foot of hemorrhagic small bowel encountered within the distal bowel just about 8 inches away from the ileocecal valve. Etiology of this is not apparent____. There is no evidence of adhesions or adhesive bands. ____Whole bowel, small bowel and large bowel was run, stomach was examined, no other pathology was noted. DESCRIPTION OF PROCEDURE: The patient was given general anesthesia. The abdomen was prepped with ChloraPrep and draped in appropriate manner. Midline incision was made above the umbilicus towards the hypogastric area. Bleeders were coagulated. The abdomen was entered. Fluoro exploration of the abdominal cavity was done except for the hemorrhagic portion of the distal small bowel, no other pathology was noted. GI instrument was used to transect the bowel distal and proximal to the hemorrhagic portion, ____fzl-mx-iate anastomosis was done using GI instrument and the open end was closed with GI instrument. The mesentery was closed with running suture of 3-0 silk. The intervening mesentery was transected utilizing EnSeal. The appendix was found to be elongated, but not inflamed. This was removed as an incidental procedure. The base of the appendix was suture ligated with 3-0 silk and transected and the stump electrocoagulated. The abdominal incision was closed with running suture of #1 PDS and the skin was closed with subcuticular suture of 4-0 Vicryl. The patient tolerated the procedure well and will be sent to ICU for postoperative care. JOB# [id number]
--- NOTE | 2016-12-31 18:44 | Operative Report ---
DATE OF SURGERY: 12/31/2016 PROCEDURE PERFORMED: Esophagogastroduodenoscopy with biopsy. INDICATION FOR PROCEDURE: Abdominal pain, nausea, vomiting , this was done to rule out gastric outlet obstruction. CONSENT: Informed consent was obtained from the patient's mother. ANESTHESIA USED: Propofol by anesthesiologist after intubation. PREOPERATIVE DIAGNOSIS: Gastric outlet obstruction. POSTOPERATIVE DIAGNOSES: 1. Tiny gastric ulcer. 2. Gastritis. DESCRIPTION OF PROCEDURE: The patient was placed on his back. Head was tilted to the side and flexed forward. Upper Olympus endoscope was introduced into the mouth and advanced to the esophagus, which was intubated under direct visualization. Esophageal mucosa was examined on the way down. It was essentially normal. GE junction was identified at 35 cm. Scope was advanced to the stomach where the gastric mucosa was examined and showed diffuse gastritis. There was erythema and irregular mucosa at the body, at the lesser curvature. There was a tiny ulcer seen in the prepyloric area, and there was gastritis along the pyloric area. Scope was then advanced through the pylorus into the duodenum where the bulb and second part were examined and they were both normal. Scope was withdrawn to the stomach, retroflexed to examine the cardia and fundus, did not show any other abnormality. Scope was then straightened. Biopsies were taken from the antrum for CLOtest. Then, that area of irregular mucosa near the lesser curvature was biopsied as well. Scope was then withdrawn while examining the gastric and esophageal mucosa second time. The patient tolerated the procedure well. There was no immediate postoperative complication. RECOMMENDATIONS: 1. Follow up biopsy results. 2. Follow up CLOtest, treat H. pylori if positive. 4. Proceed with surgery. Thank you Dr. Bhatt for allowing me to participate in the care of the patient. If you have any further questions, please let me know. JOB# [id number] SON
[2017-01-01] MEDS: Ciprofloxacin 200mg Premix PB 200 MG/100 ML BAG IV SCH ×2 (02:42→16:55)
[2017-01-01] MEDS: metroNIDAZOLE 500mg/NS 100mL 500 MG in Premix Fluid 1 BAG IV SCH ×2 (03:56→12:52)
[2017-01-01 05:15] LABS: % BASOPHILS 0.1 % (0.0-2.0); % EOSINOPHILS 0.4 % (0.0-5.0); HEMOGLOBIN 14.1 gm/dL (13.2-17.3)
[2017-01-01 05:25] LABS: % LYMPHOCYTES 13.9 % (20.0-50.0); % MONOCYTES 4.9 % (2.0-10.0); % NEUTROPHILS 80.7 % (40.0-80.0); HEMATOCRIT 42.3 % (39.0-49.0); MEAN CELL VOLUME 93.8 fl (80-99); MEAN CORPUSCULAR HEMOGLOBIN 31.2 pg (26.0-30.0); MEAN CORPUSCULAR HGB CONC 33.3 pg (28.0-36.0); MEAN PLATELET VOLUME 7.4 fl; NEUTROPHILE ABSOLUTE 9.2 Th/cmm (1.8-8.0); PLATELET COUNT 374 Th/cmm (150-400); RED BLOOD COUNT 4.51 Mil/cmm (4.30-5.70); RED CELL DISTRIBUTION WIDTH 13.8 % (11.5-20.0)
[2017-01-01 05:29] LABS: WHITE BLOOD COUNT 11.4 Th/cmm (4.8-10.8)
[2017-01-01 05:39] LABS: ANION GAP 10.6 (7.0-16.0); BUN - UREA NITROGEN 6 mg/dL (7-25); CARBON DIOXIDE 26.2 mEq/L (21.0-31.0); CHLORIDE 100 mEq/L (98-107); CREATININE - SERUM 0.6 mg/dL (0.7-1.3); GLUCOSE 126 mg/dL (70-105); POTASSIUM SERUM 3.8 mEq/L (3.5-5.1); SODIUM SERUM 133 mEq/L (136-145)
[2017-01-01 05:40] LABS: CALCIUM SERUM 8.4 mg/dL (8.6-10.3); MAGNESIUM 1.9 mg/dL (1.9-2.7)
[2017-01-01] MEDS: Metoclopramide 5 mg/mL 2mL Vial IVP SCH (08:56)
--- NOTE | 2017-01-01 11:35 | General Progress Note ---
Subjective - Review of Systems Service Date: 01/01/17 Events since last encounter: labs noted NGT moderate drainage VS stable Objective - Results Result Diagrams: 01/01/17 04:34 01/01/17 04:34 Recent Labs: Laboratory Last Values WBC 11.4 Th/cmm (4.8-10.8) H D 01/01/17 04:34 RBC 4.51 Mil/cmm (4.30-5.70) 01/01/17 04:34 Hgb 14.1 gm/dL (13.2-17.3) 01/01/17 04:34 Hct 42.3 % (39.0-49.0) 01/01/17 04:34 MCV 93.8 fl (80-99) 01/01/17 04:34 MCH 31.2 pg (26.0-30.0) H 01/01/17 04:34 MCHC Differential 33.3 pg (28.0-36.0) 01/01/17 04:34 RDW 13.8 % (11.5-20.0) 01/01/17 04:34 Plt Count 374 Th/cmm (150-400) 01/01/17 04:34 MPV 7.4 fl 01/01/17 04:34 Neutrophils % 80.7 % (40.0-80.0) H 01/01/17 04:34 Lymphocytes % 13.9 % (20.0-50.0) L 01/01/17 04:34 Monocytes % 4.9 % (2.0-10.0) 01/01/17 04:34 Eosinophils % 0.4 % (0.0-5.0) 01/01/17 04:34 Basophils % 0.1 % (0.0-2.0) 01/01/17 04:34 PT 11.6 SECONDS (9.5-11.5) H 12/30/16 05:25 INR 1.11 (0.5-1.4) 12/30/16 05:25 Sodium 133 mEq/L (136-145) L 01/01/17 04:34 Potassium 3.8 mEq/L (3.5-5.1) 01/01/17 04:34 Chloride 100 mEq/L (98-107) 01/01/17 04:34 Carbon Dioxide 26.2 mEq/L (21.0-31.0) 01/01/17 04:34 Anion Gap 10.6 (7.0-16.0) 01/01/17 04:34 BUN 6 mg/dL (7-25) L 01/01/17 04:34 Creatinine 0.6 mg/dL (0.7-1.3) L 01/01/17 04:34 Est GFR ( Amer) > 60.0 ml/min (>90) 01/01/17 04:34 Est GFR (Non-Af Amer) > 60.0 ml/min 01/01/17 04:34 BUN/Creatinine Ratio 10.0 01/01/17 04:34 Glucose 126 mg/dL (70-105) H 01/01/17 04:34 Calcium 8.4 mg/dL (8.6-10.3) L 01/01/17 04:34 Phosphorus 2.0 mg/dL (2.5-5.0) L 12/29/16 05:00 Magnesium 1.9 mg/dL (1.9-2.7) 01/01/17 04:34 Total Bilirubin 0.5 mg/dL (0.3-1.0) 12/31/16 05:32 AST 15 U/L (13-39) 12/31/16 05:32 ALT 18 U/L (7-52) 12/31/16 05:32 Alkaline Phosphatase 61 U/L (34-104) 12/31/16 05:32 Total Protein 6.6 gm/dL (6.0-8.3) 12/31/16 05:32 Albumin 3.3 gm/dL (4.2-5.5) L 12/31/16 05:32 Globulin 3.3 gm/dL 12/31/16 05:32 Albumin/Globulin Ratio 1.0 (1.0-1.8) 12/31/16 05:32 Lipase 5 U/L (11-82) L 12/28/16 06:22 - Physical Exam Vitals and I&O: Vital Signs Temp 98.1 F 01/01/17 08:00 Pulse 91 01/01/17 08:00 Resp 20 01/01/17 08:00 BP 119/72 01/01/17 08:00 Pulse Ox 96 01/01/17 08:00 Intake & Output 12/31/16 01/01/17 01/01/17 18:59 06:59 18:59 Intake Total 300 500 Balance 300 500 Intake: Intake, IV Amount 300 500 Ciprofloxacin 200mg 100 100 Premix PB 200 mg In 100 ml @ 100 mls/hr IV Q12H [facility] Rx#:[id number] KCL 20mEq/100mL Premix 20 100 meq In 100 ml @ 50 mls/ hr IV Q2H [facility] Rx#: [id number] Piperacillin Sodium/ 100 100 Tazobact 3.375 gm In Sodium Chloride 0.9% 50 ml @ 100 mls/hr IV Q6HR [facility] Rx#:[id number] metroNIDAZOLE 500mg/NS 100 200 100mL 500 mg In Premix Fluid 1 bag @ 100 mls/hr IV Q8H [facility] Rx#:[id number] Oral 0 Other: # Voids 3 2 # Bowel Movements 0 Active Medications: Current Medications Acetaminophen (Tylenol 650mg Supp) 650 mg RC Q8H PRN PRN Reason: Pain or Fever >101 Stop: 02/26/17 01:23 Carbamazepine (Tegretol) 200 mg PO Q8HR [facility] PRN Reason: Protocol Stop: 02/26/17 04:59 Last Admin: 01/01/17 05:21 Dose: Not Given Ciprofloxacin (Cipro 200mg Premix Pb) 200 mg in 100 mls @ 100 mls/hr IV Q12H [facility] Stop: 02/26/17 02:59 Last Infusion: 01/01/17 03:42 Dose: Infused Potassium Chloride 10 meq/ (Dextrose) 1,005 mls @ 75 mls/hr IV .[id number] [facility] Stop: 02/27/17 12:29 Last Admin: 12/29/16 21:48 Dose: 75 mls/hr Piperacillin Sod/Tazobactam (Sod 3.375 gm/ Sodium Chloride) 50 mls @ 100 mls/ hr IV Q6HR [facility] Stop: 03/01/17 11:59 Last Infusion: 01/01/17 05:56 Dose: Infused Metronidazole 500 mg/ (Miscellaneous) 100 mls @ 100 mls/hr IV Q8H [facility] Stop: 03/01/17 11:59 Last Infusion: 01/01/17 04:56 Dose: Infused Metoclopramide HCl (Reglan) 10 mg IVP Q12HR [facility] Stop: 02/26/17 08:59 Last Admin: 01/01/17 08:56 Dose: 10 mg Metoclopramide HCl (Reglan) 10 mg IVP Q8HR PRN PRN Reason: Abdominal Pain Stop: 02/27/17 17:37 Morphine Sulfate (Morphine) 2 mg IVP Q4HR PRN PRN Reason: Abdominal Pain Stop: 03/01/17 11:47 Last Admin: 12/31/16 15:50 Dose: 2 mg Ondansetron HCl (Zofran) 4 mg IV Q4H PRN PRN Reason: Nausea / Vomiting Stop: 02/26/17 01:23 Pantoprazole Sodium (Protonix) 40 mg IVP DAILY [facility] Stop: 02/26/17 08:59 Last Admin: 01/01/17 08:55 Dose: 40 mg - Procedures Procedures: Procedures Procedure Code Date EXCISION OF ILEUM, OPEN APPROACH [id number] 12/27/16 REMOVAL OF SMALL INTESTINE 09804 12/27/16 RESECTION OF APPENDIX, OPEN APPROACH [id number] 12/27/16
--- NOTE | 2017-01-01 11:52 | Pathology Report ---
[id number] Collection date: 12/31/2016 Surgeon: Dr. Anne Wilder and Dr. Gerald Madrigal Specimen Description: 1: Gastric body biopsy 2: Partial small bowel resection 3: Appendix Gross Description: Part I: Received in formalin is a single oswald soft tissue fragment measuring 0.2 cm in greatest dimension. Totally submitted in one cassette labeled A. Gross Description: Part II: Received in formalin is a segment of small bowel measuring 30 cm in length with an outer diameter of 2.2 cm. The segment shows areas of reddish discoloration on the outer serosal surface, and opening the specimen shows superficial mucosal ulceration and hemorrhage. Sectioning shows no mass lesions. [employer] sections are submitted in three cassettes labeled B1-B3, with ulcerated and hemorrhagic areas contained in cassettes B1 and B2. Gross Description: Part III: Received in formalin is an intact appendix measuring 5 cm in length x 0.6 cm in diameter. Sectioning shows an intact wall and lumen with no evidence for exudate appreciated. [employer] sections are submitted in one cassette labeled C. Microscopic Description: Part I: The histologic sections show gastric mucosa with chronic inflammation present consisting of lymphocytes and plasma cells. The Giemsa stain shows no evidence for Helicobacter pylori. Diagnosis: Part I: 1. Chronic gastritis, gastric body biopsy. 2. The Giemsa stain is negative for Helicobacter pylori. Microscopic Description: Part II: The histologic sections show small bowel with areas of superficial mucosal ulceration and hemorrhage. There is also chronic inflammation appreciated in these areas consisting of slightly increased numbers of lymphocytes and plasma cells with inflammation also seen on the outer serosal surface of the small bowel. Diagnosis: Part II: Superficial mucosal ulceration and hemorrhage, small bowel. Microscopic Description: Part III: The histologic sections show appendix with an intact wall and lumen. There is no evidence for inflammation. Diagnosis: Part III: Normal appendix, incidental appendectomy. [facility]# [id number] [facility]
[2017-01-01] MEDS: Morphine Sulfate 2 mg/mL 1mL Syr IVP PRN (17:02)
--- NOTE | 2017-01-02 18:24 | Discharge Summary ---
DATE OF DISCHARGE: 01/01/2017 ADMITTING DIAGNOSES: 1. Abdominal pain. 2. Persistent nausea and vomiting. 3. History of recent ileus and possible small-bowel obstruction. 4. Electrolyte imbalance. 5. Mild leukocytosis. SECONDARY DIAGNOSES: 1. History of mental retardation. 2. Down syndrome. 3. Dyslipidemia. 4. Hypertension. DISCHARGE DIAGNOSES: 1. Small-bowel obstruction, status post exploratory laparotomy with resection of hemorrhagic distal ileum with [id number]-[id number] anastomosis and incidental appendectomy. 2. Mild gastritis and small gastric ulcer. 3. Mild leukocytosis. 4. Mild hyponatremia. CONSULTANTS: 1. Dr. Wilder, GI. 2. Dr. Madrigal, Surgery. MAJOR PROCEDURES: There was a small bowel x-ray done on 12/28/2016 showing prolonged gastric retention with delayed transfer of contrast throughout the small bowel. The overall appearance suggests changes of possible distal small-bowel obstruction. There was an EGD done on 12/31/2016 showing tiny gastric ulcer and gastritis, and on 12/31/2016 there was a resection of hemorrhagic distal ileum with [id number] anastomosis and incidental appendectomy. DISCHARGE MEDICATIONS: Zosyn 3.375 q.6h.; Protonix 40 mg IV every day; Zofran 4 mg IV q.4h p.r.n. for nausea and vomiting; morphine 2 mg IV push q.4h p.r.n. for abdominal pain; Flagyl 500 mg q.8 hours; Reglan 10 mg IV push q.8h; Cipro 200 mg q.12h; Tegretol 200 mg q.8, Tylenol 650 per rectum q.8h p.r.n. for pain and fever over 101. BRIEF HOSPITAL COURSE: The patient is a 41-year-old gentleman with history of intellectual disability/Down syndrome, history of hypertension, history of heart disease, who has been admitted to this facility twice for nausea, vomiting, abdominal pain and distention. He was admitted roughly about a week prior to this admission with the above-mentioned symptomatology, which was relieved with IV fluids, n.p.o. for a couple of days, and was unable to tolerate clear liquids and eventually a soft pureed diet well. However, he was sent back from [facility] with recurrent symptoms. At that time, the white count was 11.[address] of the abdomen showed rectal wall was seen as being thickened, and there was fecal retention. He was admitted and placed on IV fluids, placed on IV antibiotics, and underwent the above-mentioned diagnostics without any complications. Given his recurrence, GI and Surgical evaluations were placed and he underwent the above-mentioned EGD and then exploratory laparotomy without any complications. Postop, he remained stable with an NG tube and his vital signs also were stable. DISPOSITION: The patient was transferred to [facility] for further management and care. [facility]# [id number] MTDD
== END 2017-01-01 17:30 | DRG 330 ==
LOC: ER 17:59 → TELE 23:50
PROVIDERS: ADMIT Internal Medicine; ATTEND Internal Medicine
PROC: 0DTB0ZZ Resection of Ileum, Open Approach (ICD-10-PCS; principal; 2016-12-31)
PROC: 0DTJ0ZZ Resection of Appendix, Open Approach (ICD-10-PCS; 2016-12-31)
PROC: 0WJP0ZZ Inspection of Gastrointestinal Tract, Open Approach (ICD-10-PCS; 2016-12-31)
PROC: 0DB68ZX Excision of Stomach, Via Natural or Artificial Opening Endoscopic, Diagnostic (ICD-10-PCS; 2016-12-31)
DX: K56.60 Unspecified intestinal obstruction (principal); E44.1 Mild protein-calorie malnutrition; E87.1 Hypo-osmolality and hyponatremia; E83.39 Other disorders of phosphorus metabolism; K31.84 Gastroparesis; K25.9 Gastric ulcer, unspecified as acute or chronic, without hemorrhage or perforation; Z68.1 Body mass index [BMI] 19.9 or less, adult; I10 Essential (primary) hypertension; Q90.9 Down syndrome, unspecified; F79 Unspecified intellectual disabilities; E78.5 Hyperlipidemia, unspecified; E87.6 Hypokalemia; K29.70 Gastritis, unspecified, without bleeding
CPT/HCPCS: 36415-UA; 71010-TC; 74250-TC; 80048-TC; 80053-TC; 83690-TC; 83735-TC; 84100-TC; 85025-TC; 85610-TC; 87338-TC; 88304-TC; 88305-90; 88312-90; 90799; 96372; C9113; J0690; J0744; J2001; J2250; J2270; J2543; J2704; J2710; J2765; J3480; J7070; X6024; X6258; Z7610

== ENCOUNTER 2017-03-01 20:11 | Emergency (ER) | payer MEDICARE, MEDICAID ==
[2017-03-01 21:02] LABS: CHOLESTEROL 160 mg/dL (<200); INR 0.97 (0.5-1.4); PROTHROMBIN TIME (TEST) 10.1 SECONDS (9.5-11.5); TRIGLYCERIDES 133 mg/dL (<150)
[2017-03-01 21:04] LABS: ALB/GLOB RATIO 1.1 (1.0-1.8); ALKALINE PHOSPHATASE 67 U/L (34-104); ANION GAP 9.3 (7.0-16.0); BILIRUBIN,TOTAL 0.2 mg/dL (0.3-1.0); BUN - UREA NITROGEN 17 mg/dL (7-25); BUN/CREATININE RATIO 28.3; CALCIUM SERUM 9.4 mg/dL (8.6-10.3); CARBON DIOXIDE 26.6 mEq/L (21.0-31.0); CHLORIDE 104 mEq/L (98-107); CREATININE - SERUM 0.6 mg/dL (0.7-1.3); GLUCOSE 107 mg/dL (70-105); POTASSIUM SERUM 3.9 mEq/L (3.5-5.1); SGOT 14 U/L (13-39); SGPT/ALT 10 U/L (7-52); SODIUM SERUM 136 mEq/L (136-145)
--- NOTE | 2017-03-01 21:16 | ED Physician Chart ---
Chief Complaint/HPI - Patient Information Date Seen:: 03/01/17 Time Seen:: 20:30 Chief Complaint:: HIP PAIN History of Present Illness:: THIS IS A SEVERE DOWNS SYNDROME SENT HERE FOR A EVALUATION OF HIS RIGHT HIP AND GENERAL HEALTH. THE ABNORMAL HIP WAS NOTED ON AN X-RAY THAT WAS DONE FOR A POSSIBLE FRACTURE OF THE HIP. HE IS BED RIDDEN AND UNABLE TO MOVE OR COMMUNICATE. THE PATIENT IS CURRENTLY HAVING ANY PAIN. Allergies:: Allergies Allergy/AdvReac Type Severity Reaction Status Date / Time No Known Allergies Allergy Verified 03/01/17 20:43 Vitals:: Vital Signs - 8 hr 03/01/17 20:20 Temp 97.1 F HR 71 RR 19 O2 Sat % 96 Historian:: Family Member Review:: Nurse's Note Reviewed, Old Chart Reviewed, Transfer documents Reviewed Review of Systems - Review of Systems General/Constitutional: No fever, No chills, No weight loss, No weakness, No diaphoresis, No edema, No loss of appetite, Other (THIS PATIENT IS UNABLE TO GIVE A REVIEW OF SYSTEMS.) Skin: No skin lesions, No rash, No bruising Head: No headache, No light-headedness Eyes: No loss of vision, No pain, No diplopia ENT: No earache, No nasal drainage, No sore throat, No tinnitus Neck: No neck pain, No swelling, No thyromegaly, No stiffness, No mass noted Cardio Vascular: No chest pain, No palpitations, No PND, No orthopnea, No edema Pulmonary: No SOB, No cough, No sputum, No wheezing GI: No nausea, No vomiting, No diarrhea, No pain, No melena, No hematochezia, No constipation, No hematemesis G/U: No dysuria, No frequency, No hematuria Musculoskeletal: No bone or joint pain, No back pain, No muscle pain Endocrine: No polyuria, No polydipsia Psychiatric: No prior psych history, No depression, No anxiety, No suicidal ideation Hematopoietic: No bruising, No lymphadenopathy Allergic/Immuno: No urticaria, No angioedema Neurological: No syncope, No focal symptoms, No weakness, No paresthesia, No headache, No seizure, No dizziness, No confusion, No vertigo Past Medical History - Past Medical History Obtainable: Yes Past Medical History: HTN, Dyslipidemia, Dementia, Other (DOWNS SYNDROME) Family History: None Social History: Non Smoker, No Alcohol, No Drug Use, Single, Care Facility Surgical History: None Psychiatricy History: None Medication: Reviewed Family Medical History - Family Member Mother History Unknown: Yes Ethnicity: Unknown Living Status: Unknown Hx Family Cancer: (UNKNOWN) Hx Family Coronary Artery Disease: (UNKNOWN) Hx Family Congestive Heart Failure: (UNKNOWN) Hx Family Hypertension: (UNKNOWN) Hx Family Stroke: (UNKNOWN) Hx Family Diabetes: (UNKNOWN) Hx Family Seizures: (UNKNOWN) Hx Family Dementia: (UNKNOWN) Hx Family AIDS: (UNKNOWN) Hx Family COPD: (UNKNOWN) Hx Family Hepatitis: (UNKNOWN) Hx Family Psychiatric Problems: (UNKNOWN) Hx Family Tuberculosis: (UNKNOWN) Physical Exam - Physical Examination General/Constitutional: Awake, Well-developed, well-nourished, Alert, No distress, GCS 15, Non-toxic appearing, Ambulatory Other Gen/Cons comments:: POORLY DEVELOPED DEFORMED MALE DOWNS PATIENT UNABLE TO SPEAK OR THINK. Head: Atraumatic Eyes: Lids, conjuctiva normal, PERRL, EOMI Skin: Nl inspection, No rash, No skin lesions, No ecchymosis, Well hydrated, No lymphadenopathy ENMT: External ears, nose nl, Nasal exam nl, Lips, teeth, gums nl Neck: Nontender, Full ROM w/o pain, No JVD, No nuchal rigidity, No bruit, No mass, No stridor Respiratory: Nl effort/Exclusion, Clear to Auscultation, No Wheeze/Rhonchi/Rales Cardio Vascular: RRR, No murmur, gallop, rubs, NL S1 S2 GI: No tenderness/rebounding/guarding, No organomegaly, No hernia, Normal BS's, Nondistended, No mass/bruits, No McBurney tenderness : No CVA tenderness Extremities: No tenderness or effusion, Full ROM, normal strength in all extremities, No edema, Normal digits & nails Other Extremities comments:: POORLY DEVELOPED AND DEFORMED UPPER AND LOWER EXTREMITIES. THERE IS ALSO SEVERE MUSCLE WASTING NOTED. Neuro/Psych: DTR's symmetric, Normal sensory exam, Normal motor strength, Judgement/insight normal, Mood normal, Normal gait, No focal deficits Misc: normal gait, Normal back, No paraspinal tenderness Labs/Radiology/EKG Results - Lab Results Results: Laboratory Tests 03/01/17 03/01/17 03/01/17 20:40 20:40 20:40 PT 10.1 INR 0.97 PTT (Actin FS) 25.0 L Sodium 136 Potassium 3.9 Chloride 104 Carbon Dioxide 26.6 Anion Gap 9.3 BUN 17 Creatinine 0.6 L Est GFR ( Amer) > 60.0 Est GFR (Non-Af Amer) > 60.0 BUN/Creatinine Ratio 28.3 Glucose 107 H Calcium 9.4 Total Bilirubin 0.2 L AST 14 ALT 10 Alkaline Phosphatase 67 Troponin I Total Protein 6.7 Albumin 3.5 L Globulin 3.2 Albumin/Globulin Ratio 1.1 Triglycerides 133 Cholesterol 160 LDL Cholesterol Direct 65 L HDL Cholesterol 71 03/01/17 20:40 PT INR PTT (Actin FS) Sodium Potassium Chloride Carbon Dioxide Anion Gap BUN Creatinine Est GFR ( Amer) Est GFR (Non-Af Amer) BUN/Creatinine Ratio Glucose Calcium Total Bilirubin AST ALT Alkaline Phosphatase Troponin I 0.02 Total Protein Albumin Globulin Albumin/Globulin Ratio Triglycerides Cholesterol LDL Cholesterol Direct HDL Cholesterol - Radiology Results Results: X-RAY OF THE HIP AND PELVIS = CHRONIC DISLOCATION OF THE RIGHT HIP Assessment - Assessment General Assessment: NO FRACTURED SEEN BUT A CHRONICALLY DISLOCATED HIP ED Septic Shock - . Is Septic Shock (SBP<90, OR Lactate>4 mmol\L) present?: No - <6hrs of presentation: Vital Signs: Vital Signs - 8 hr 03/01/17 20:20 Temp 97.1 F HR 71 RR 19 O2 Sat % 96 Reassessment (Disposition) - Reassessment Reassessment Condition:: Unchanged - Diagnosis Diagnosis:: CHRONIC DISLOCATION OF THE RIGHT HIP - Aftercare/Follow up Instructions Aftercare/Follow-Up Instructions:: Counseled pt regarding lab results/diagnosis & need follow up, Refer to Discharge Instructions, Counseled pt & family regarding lab results/diagnosis & need follow up - Patient Disposition Discharge/Transfer:: Intermediate Care - SNF Condition at Disposition:: Unchanged ED Discharge Plan - Patient Disposition Admit/Discharge/Transfer: PT DISCHARGED HOME Condition at Disposition: Unchanged
[2017-03-01 21:38] LABS: % BASOPHILS 0.7 % (0.0-2.0); % EOSINOPHILS 2.2 % (0.0-5.0); % LYMPHOCYTES 40.2 % (20.0-50.0); % MONOCYTES 9.1 % (2.0-10.0); % NEUTROPHILS 47.8 % (40.0-80.0); HEMATOCRIT 38.5 % (39.0-49.0); HEMOGLOBIN 12.8 gm/dL (13.2-17.3); MEAN CELL VOLUME 95.1 fl (80-99); MEAN CORPUSCULAR HEMOGLOBIN 31.5 pg (26.0-30.0); MEAN CORPUSCULAR HGB CONC 33.2 pg (28.0-36.0); MEAN PLATELET VOLUME 6.7 fl; NEUTROPHILE ABSOLUTE 2.2 Th/cmm (1.8-8.0); RED BLOOD COUNT 4.05 Mil/cmm (4.30-5.70); RED CELL DISTRIBUTION WIDTH 15.5 % (11.5-20.0)
[2017-03-01 21:41] LABS: PLATELET COUNT 277 Th/cmm (150-400); WHITE BLOOD COUNT 4.5 Th/cmm (4.8-10.8)
--- NOTE | 2017-03-02 09:48 | Diagnostic Imaging Report ---
Pelvis HISTORY: Pain There is severe chronic deformity about the right hip with obliteration of the femoral head and deformity of the right acetabulum. Upward displacement of the femoral shaft. No definite acute bony abnormalities are seen. IMPRESSION: 1. Severe chronic deformity about the right hip obliteration of the right femoral head and enlargement and deformity of the right acetabulum with upward displacement of the right femoral shaft
--- NOTE | 2017-03-02 09:48 | Diagnostic Imaging Report ---
Right hip (3 views) HISTORY: Pain The exam demonstrates extensive chronic changes and deformity about the right hip. Obliteration of the right femoral head. Deformity of the right acetabulum. Several calcific densities noted. Upward displacement of the femoral shaft. IMPRESSION: 1. Severe chronic deformity about the right hip with upward displacement of the femoral shaft and obliteration of the femoral head.
== END 2017-03-01 22:03 | disposition home or self-care (01) ==
LOC: ER 20:11
DX: M24.451 Recurrent dislocation, right hip (principal); I10 Essential (primary) hypertension; E78.5 Hyperlipidemia, unspecified
CPT/HCPCS: 36415-UA; 72170-TC; 73501; 80053-TC; 80061-TC; 84443-TC; 84484-TC; 85025-TC; 85610-TC; 85730-TC; 86592-TC

== ENCOUNTER 2018-09-29 22:17 | Inpatient (IN) | payer MEDICARE, MEDICAID ==
--- NOTE | 2018-09-29 22:32 | ED Physician Chart ---
ED Chief Complaint/HPI - Patient Information Date Seen:: 09/29/18 Time Seen:: 22:28 Chief Complaint:: abd pain fever vomiting Allergies:: Allergies Allergy/AdvReac Type Severity Reaction Status Date / Time No Known Allergies Allergy Verified 09/29/18 22:18 Vitals:: Vital Signs - 8 hr 09/29/18 22:20 Temp 99.1 F HR 92 RR 18 BP 92/63 O2 Sat % 95 ED Review of Systems - Review of Systems General/Constitutional: Fever Skin: No skin lesions Eyes: No loss of vision ENT: No nasal drainage Neck: No neck pain Cardio Vascular: No chest pain Pulmonary: No SOB Hematopoietic: No bruising Allergic/Immuno: No urticaria ED Past Medical History - Past Medical History Past Medical History: Other (downs syndrome hearing loss ) Family Medical History - Family Member Mother History Unknown: Yes Ethnicity: Unknown Living Status: Unknown Hx Family Cancer: (UNKNOWN) Hx Family Coronary Artery Disease: (UNKNOWN) Hx Family Congestive Heart Failure: (UNKNOWN) Hx Family Hypertension: (UNKNOWN) Hx Family Stroke: (UNKNOWN) Hx Family Diabetes: (UNKNOWN) Hx Family Seizures: (UNKNOWN) Hx Family Dementia: (UNKNOWN) Hx Family AIDS: (UNKNOWN) Hx Family COPD: (UNKNOWN) Hx Family Hepatitis: (UNKNOWN) Hx Family Psychiatric Problems: (UNKNOWN) Hx Family Tuberculosis: (UNKNOWN) ED Septic Shock - . Is Septic Shock (SBP<90, OR Lactate>4 mmol\L) present?: No - <6hrs of presentation: Vital Signs: Vital Signs - 8 hr 09/29/18 22:20 Temp 99.1 F HR 92 RR 18 BP 92/63 O2 Sat % 95 ED Reassessment (Disposition) - Reassessment Reassessment:: abd pain fever vomiting downs syndrome - Diagnosis Diagnosis:: as above - Patient Disposition Discharge/Transfer:: Acute Care w/in this hosp Admitted to:: Med/Surg Condition at Disposition:: Stable
[2018-09-29] MEDS ORDERED: Sodium Chloride 0.9% 1,000 ML IV ONE (22:44)
[2018-09-29 23:03] LABS: HEMATOCRIT 41.3 % (41.0-60); HEMOGLOBIN 14.1 gm/dL (12-16); MEAN CELL VOLUME 94.6 fl (80-99); MEAN CORPUSCULAR HEMOGLOBIN 32.3 pg (26.0-30.0); MEAN CORPUSCULAR HGB CONC 34.1 pg (28.0-36.0); MEAN PLATELET VOLUME 7.4 fl; PLATELET COUNT 219 Th/cmm (150-400); RED BLOOD COUNT 4.36 Mil/cmm (4.30-5.70); WHITE BLOOD COUNT 13.6 Th/cmm (4.8-10.8)
[2018-09-29 23:20] LABS: ALB/GLOB RATIO 1.2 (1.0-1.8); ALBUMIN 3.9 gm/dL (4.2-5.5); ALKALINE PHOSPHATASE 73 U/L (34-104); AMYLASE SERUM 30 U/L (29-103); ANION GAP 14.6 (7.0-16.0); BILIRUBIN,TOTAL 0.3 mg/dL (0.3-1.0); BUN - UREA NITROGEN 9 mg/dL (7-25); CALCIUM SERUM 9.2 mg/dL (8.6-10.3); CARBON DIOXIDE 27.1 mEq/L (21.0-31.0); CHLORIDE 103 mEq/L (98-107); CREATININE - SERUM 0.6 mg/dL (0.7-1.3); GFR AFRICAN-AMERICAN > 60.0 ml/min (>90); GFR NON AFRICAN-AMERICAN > 60.0 ml/min; GLUCOSE 117 mg/dL (70-105); LIPASE 6 U/L (11-82); POTASSIUM SERUM 3.7 mEq/L (3.5-5.1); SGOT 19 U/L (13-39); SGPT/ALT 14 U/L (7-52); SODIUM SERUM 141 mEq/L (136-145); TOTAL PROTEIN,SERUM 7.3 gm/dL (6.0-8.3)
[2018-09-29 23:36] LABS: BAND NEUTROPHILE 0 % (0-10); BASOPHIL 0 % (0-3); EOSINOPHIL 0 % (0-5); LYMPHOCYTE 6 % (20-50); MONOCYTE 4 % (2-10); NEUTROPHILS 90 % (40-80)
[2018-09-30] MEDS ORDERED: Acetaminophen 500 MG TAB PO PRN (00:15)
[2018-09-30] MEDS: Sodium Chloride 0.9% 1,000 ML IV SCH ×3 (00:46→23:57)
[2018-09-30 01:19] VITALS: BP 143/86
[2018-09-30] MEDS ORDERED: Ciprofloxacin 200mg Premix PB 200 MG/100 ML BAG IV ONE (01:44)
[2018-09-30] MEDS: Ciprofloxacin 200mg Premix PB 200 MG/100 ML BAG IV SCH ×2 (01:48→12:02)
[2018-09-30 05:40] LABS: HEMATOCRIT 38.6 % (41.0-60); MEAN CELL VOLUME 95.8 fl (80-99); MEAN CORPUSCULAR HEMOGLOBIN 32.2 pg (26.0-30.0); MEAN CORPUSCULAR HGB CONC 33.6 pg (28.0-36.0); MEAN PLATELET VOLUME 7.4 fl; PLATELET COUNT 217 Th/cmm (150-400); RED BLOOD COUNT 4.04 Mil/cmm (4.30-5.70); RED CELL DISTRIBUTION WIDTH 13.5 % (11.5-20.0); WHITE BLOOD COUNT 9.6 Th/cmm (4.8-10.8)
[2018-09-30 05:54] LABS: ANION GAP 10.4 (7.0-16.0); BUN - UREA NITROGEN 7 mg/dL (7-25); CALCIUM SERUM 8.5 mg/dL (8.6-10.3); CARBON DIOXIDE 27.1 mEq/L (21.0-31.0); CHLORIDE 107 mEq/L (98-107); CREATININE - SERUM 0.6 mg/dL (0.7-1.3); GFR AFRICAN-AMERICAN > 60.0 ml/min (>90); GFR NON AFRICAN-AMERICAN > 60.0 ml/min; GLUCOSE 99 mg/dL (70-105); MAGNESIUM 2.1 mg/dL (1.9-2.7); POTASSIUM SERUM 3.5 mEq/L (3.5-5.1); SODIUM SERUM 141 mEq/L (136-145)
[2018-09-30 06:45] LABS: BAND NEUTROPHILE 4 % (0-10); BASOPHIL 0 % (0-3); EOSINOPHIL 1 % (0-5); LYMPHOCYTE 9 % (20-50); MONOCYTE 3 % (2-10); NEUTROPHILS 83 % (40-80)
--- NOTE | 2018-09-30 09:16 | Diagnostic Imaging Report ---
CHEST X-RAY: AP view INDICATION: Shortness of breath COMPARISON: 01/27/2018 FINDINGS: Increased initial lung markings are noted. No focal consolidation or effusions. Heart size normal. No changes of spine are noted. Nonspecific gas-filled bowel the upper abdomen are noted. IMPRESSION: Increased interstitial lung markings, greatest along the lung bases, nonspecific. No focal consolidation identified.
--- NOTE | 2018-09-30 09:27 | Diagnostic Imaging Report ---
CT abdomen and pelvis without intravenous contrast Indication: Abdominal pain and vomiting Comparison: Small bowel follow-through procedure on 12/28/[address] abdomen and pelvis on 12/23/2016, Technique: Axial images were obtained from the lung bases to the bilateral proximal femurs without IV contrast. Coronal reconstructions were made. total DLP: 492, CTDI10.4 FINDINGS: Hypoventilatory atelectatic changes of the lung bases are seen. Faint infiltrates the left base are suspected. Assessment of the solid organs is limited due to lack of IV contrast. No evidence of focal hepatic lesions. No radiopaque gallstones. Limited assessment of the spleen demonstrate no focal lesions. There is suboptimal assessment of the pancreas, however, no focal lesions are identified. The adrenal glands are poorly visualized. No evidence of hydronephrosis. 1 mm nonobstructive left renal stone is noted. Multiple air-fluid filled loops of bowel are noted close small and large bowel loops. Postsurgical changes of bowel loops along the right lower abdomen is noted. Appendix is not visualized. There is mild rectal wall thickening. No free fluid or free air. There is is a chronic deformity at and resorption of right femoral head with chronic dislocation. IMPRESSION: Multiple fluid-filled distended loops of small and large bowel which may be due to underlying enteritis and diarrhea. Please correlate clinically. Rectal wall thickening. Infectious inflammatory or infiltrative process cannot be excluded. Please correlate clinically. Postsurgical changes of the right lower abdomen. The appendix is not visualized. 1 mm nonobstructive left renal stone. Left basal increased initial lung markings and probable interstitial infiltrates, correlate clinically. Chronic right hip dislocation with chronic resorption of the right femoral head.
[2018-09-30] MEDS ORDERED: Albuterol/Ipratropium Neb 3 ML AERS HHN PRN (13:06)
[2018-09-30] MEDS ORDERED: Fleet Enema 135 mL RC PRN (13:06)
[2018-09-30] MEDS ORDERED: Magnesium Hydroxide (MOM) 30 mL UDC PO PRN (13:06)
[2018-09-30] MEDS: Multivitamin w/ Minerals Tab PO SCH (14:00)
[2018-09-30] MEDS: Aspirin 81mg Chewable Tab PO SCH (14:00)
--- NOTE | 2018-09-30 14:42 | History & Physical ---
ADMIT DATE: 09/30/2018 CHIEF COMPLAINT: Nausea, vomiting, abdominal pain, fevers. HISTORY OF PRESENT ILLNESS: This is a 43-year-old male resident of [facility] with a history significant for intellectual disability, seizure disorder who was transferred from the above-mentioned facility with a 1-day history of fevers, nausea, vomiting and apparent abdominal pain. Pertinent findings of the ED include temperature of 99.1, blood pressure 92/63, white count of 13.6 with a lactic acid of 2.41 and abdominal/pelvic CT consistent with acute gastroenteritis. The patient has been admitted to [facility] for further management and care. PAST MEDICAL HISTORY: As noted above. History of Down syndrome, dyslipidemia, hypertension, previous gastritis, also history of ileus, anemia, and peptic ulcer disease. PAST SURGICAL HISTORY: No major surgeries reported. He underwent an EGD a couple of years ago. FAMILY HISTORY: Likely noncontributory to this admission. SOCIAL HISTORY: No tobacco, ETOH or illicit drug usage. ALLERGIES: NKDA. OUTPATIENT MEDICATIONS: Tylenol 650 q. 4 p.r.n. for pain, DuoNeb q. 4 hours p.r.n. for shortness of breath, calcium with vitamin D3 b.i.d., Tegretol 200 mg q. 8 hours, Cipro 500 mg b.i.d., docusate sodium 100 mg t.i.d., iron sulfate 325 b.i.d., Fleet enema p.r.n. q. 96 hours for severe constipation, MOM 30 mL q. 72 hours p.r.n., multivitamins and minerals every day, nitroglycerin 0.4 q. 5 minutes p.r.n. for chest pain, MiraLax 17 g p.o. b.i.d. REVIEW OF SYSTEMS: A full review of systems was unable to be done given patient's condition, but per records, he apparently has had fevers at least 1 day prior to admission and GI, nausea, vomiting, no reports of diarrhea. PHYSICAL EXAMINATION: VITAL SIGNS: Temperature 97.5, pulse 73-80, respirations 18, BP 102/65, sats 98% on room air. GENERAL: Well nourished, developmentally delayed male in no apparent distress. He is awake, appears to be comfortable. Oropharynx is moist and clear. NECK: There is no JVD or LAD. CARDIOVASCULAR: Regular rate and rhythm without any murmurs. LUNGS: Diminished at the bases, but overall clear to auscultation bilaterally. ABDOMEN: Soft, supple, mildly distended, but nontender to palpation, currently with normoactive bowel sounds. EXTREMITIES: Lower extremities, there is no pedal edema. LABORATORY DATA: On admission, white count 13.6 with 90% neutrophils. Otherwise CBC was within normal limits. Glucose 117. Otherwise, chem-7 was within normal limits. Lactic acid level 2.41. LFTs were within normal limits. Lipase 6. DIAGNOSTICS: Please refer to HPI. Chest x-ray done earlier today shows increased interstitial lung markings, greatest along the lung bases. ASSESSMENT AND PLAN: 1. Acute gastroenteritis. 2. Sepsis/shock. 3. Leukocytosis. 4. Elevated lactic acid level. 5. History of seizure disorder. 6. Previous history of gastritis. 7. Previous history of anemia. 8. Intellectual disability. PLAN: The patient has been admitted to the tele [facility] where he has been placed on IV fluids, supportive care including Zofran and has been started on Cipro 200 mg IV q. 12. His regular medications will be restarted and followup labs will be done in the morning. If patient remains stable, he will be discharged on p.o. antibiotics. JOB# [id number]
[2018-09-30] MEDS: POLYETHYLENE GLYCOL 3350 17 GM PACK PO SCH (17:09)
[2018-09-30] MEDS: Ferrous Sulfate 325 MG TAB PO SCH (17:09)
[2018-09-30] MEDS: Calcium Carb/Vit D 500 mg/200 U Tab PO SCH (17:09)
[2018-10-01] MEDS: Ciprofloxacin 200mg Premix PB 200 MG/100 ML BAG IV SCH (01:16)
[2018-10-01 06:26] LABS: % BASOPHILS 1.2 % (0.0-2.0); % EOSINOPHILS 5.3 % (0.0-5.0); % LYMPHOCYTES 20.9 % (20.0-50.0); % MONOCYTES 9.7 % (2.0-10.0); % NEUTROPHILS 62.9 % (40.0-80.0); BASOPHILE ABSOLUTE 0.1 Th/cumm (0-0.2); EOSINOPHILE ABSOLUTE 0.2 Th/cmm (0.1-0.4); HEMOGLOBIN 13.8 gm/dL (12-16); LYMPHOCYTE ABSOLUTE 0.9 Th/cmm (1.5-3.0); MEAN CELL VOLUME 96.5 fl (80-99); MEAN CORPUSCULAR HEMOGLOBIN 31.6 pg (26.0-30.0); MEAN CORPUSCULAR HGB CONC 32.8 pg (28.0-36.0); MEAN PLATELET VOLUME 7.3 fl; MONOCYTE ABSOLUTE 0.4 Th/cmm (0.3-1.0); NEUTROPHILE ABSOLUTE 2.6 Th/cmm (1.8-8.0); PLATELET COUNT 214 Th/cmm (150-400); RED BLOOD COUNT 4.36 Mil/cmm (4.30-5.70); RED CELL DISTRIBUTION WIDTH 13.8 % (11.5-20.0); WHITE BLOOD COUNT 4.2 Th/cmm (4.8-10.8)
[2018-10-01 06:48] LABS: ANION GAP 10.2 (7.0-16.0); BUN - UREA NITROGEN 6 mg/dL (7-25); CALCIUM SERUM 8.9 mg/dL (8.6-10.3); CARBON DIOXIDE 27.8 mEq/L (21.0-31.0); CHLORIDE 106 mEq/L (98-107); CREATININE - SERUM 0.6 mg/dL (0.7-1.3); GFR AFRICAN-AMERICAN > 60.0 ml/min (>90); GFR NON AFRICAN-AMERICAN > 60.0 ml/min; GLUCOSE 97 mg/dL (70-105); MAGNESIUM 2.1 mg/dL (1.9-2.7); SODIUM SERUM 141 mEq/L (136-145)
[2018-10-01] MEDS: Multivitamin w/ Minerals Tab PO SCH (08:22)
[2018-10-01] MEDS: Calcium Carb/Vit D 500 mg/200 U Tab PO SCH (08:22)
[2018-10-01] MEDS: Aspirin 81mg Chewable Tab PO SCH (08:22)
[2018-10-01] MEDS: Ferrous Sulfate 325 MG TAB PO SCH (08:22)
[2018-10-01] MEDS: POLYETHYLENE GLYCOL 3350 17 GM PACK PO SCH (08:23)
[2018-10-01] MEDS ORDERED: Potassium Chloride 20 mEq ER Tab PO ONE (10:01)
--- NOTE | 2018-10-01 21:04 | Discharge Summary ---
DATE OF DISCHARGE: 10/01/2018 ADMITTING DIAGNOSES: 1. Acute gastroenteritis. 2. Sepsis shock. 3. Leukocytosis. 4. Elevated lactic acid level. SECONDARY DIAGNOSES: Include; 1. History of intellectual disability. 2. History of seizure disorder. 3. Previous history of gastritis. 4. History of anemia. DISCHARGE DIAGNOSES: 1. Gastroenteritis -- clinically resolved. 2. Sepsis shock, clinically resolved. 3. Leukocytosis, resolved. 4. Elevated lactic acid level, resolved. CONSULTANTS: No consultants were used during this admission. MAJOR PROCEDURES: Abdominal pelvis CT on 09/29/2018 showed multiple level distended loops of small and large bowel, which may be due to underlying enteritis and diarrhea. BRIEF HOSPITAL COURSE: This is a 43-year-old gentleman with history of intellectual disability/down syndrome who resides at [facility] who was brought into the ED with a 1-day history of fevers, nausea, vomiting and apparent abdominal pain. Pertinent findings in the ER include a temperature of 99.1, blood pressure 92/63, WBCs of 13.6 and lactic acid of 2.41. He underwent the above noted abdominal CT and was admitted to tele [facility] where he was placed on IV antibiotics, IV fluids and his medications schedule. He was pancultured with a negative blood culture results. By hospital day #1, he had improved clinically and he remained afebrile throughout his hospital stay. His blood pressure was noted to be 127/56 on 09/30/2018. As far as the labs go, his white count was noted to be 9.6 on 09/30/2018 and his lactic acid level had also improved to a level 0.78 by on the same day. DISCHARGE MEDICATIONS: Ciprofloxacin 250 b.i.d. x 10 days, acetaminophen 650 q.4 p.r.n. for pain, DuoNeb q.4 hours p.r.n. for SOB, aspirin 81 every day, calcium with vitamin D3 one tab b.i.d., Tegretol 200 mg q.8 hours, Colace 100 mg t.i.d., iron sulfate 325 b.i.d., Fleet Enema q.96 hours p.r.n. for severe constipation, milk of magnesia p.r.n., multiple vitamins and minerals 1 tab every day, MiraLax 17 grams b.i.d. DISPOSITION: The patient was transferred or the patient was discharged back to [facility]. JOB# [id number]
== END 2018-10-01 11:30 | DRG 871 ==
LOC: ER 22:17 → MSI 23:47
PROVIDERS: ADMIT Internal Medicine; ATTEND Internal Medicine
DX: A41.9 Sepsis, unspecified organism (principal); R65.21 Severe sepsis with septic shock; F79 Unspecified intellectual disabilities; K52.9 Noninfective gastroenteritis and colitis, unspecified; Q90.9 Down syndrome, unspecified; G40.909 Epilepsy, unspecified, not intractable, without status epilepticus; E78.5 Hyperlipidemia, unspecified; I10 Essential (primary) hypertension
CPT/HCPCS: 36415-UA; 71045-TC; 80048-TC; 80053-TC; 82150-TC; 83605; 83690-TC; 83735-TC; 85007-TC; 85025-TC; 94760; J0744; J7030; Z7610